=== PATIENT | female | born 1950 | race American Indian/Alaskan Native ===

== ENCOUNTER 2016-04-10 15:19 | Inpatient (IN) | payer SELFPAY ==
[2016-04-10] MEDS ORDERED: ZOFRAN IV ONE (16:30)
[2016-04-10] MEDS ORDERED: SUBLIMAZE IV ONE (16:30)
--- NOTE | 2016-04-10 16:37 | Emergency Department Report ---
HPI - General Chief Complaint: Chest Pain Time Seen by Provider: 04/10/16 16:20 - HPI HPI: Room 21 The patient is a 65-year-old female presenting with a chief complaint of chest pain and abdominal pain. Patient states her symptoms began 3 days ago with intermittent left-sided chest pain described as a tightness that radiates to the left upper extremity and back. The patient states she also has had pain in the epigastric region and felt as though she has been unable to pass flatus. Patient does admit to shortness of breath and nausea/vomiting with her chest pain. Patient denies diaphoresis. The patient states she's never had a stress test or cardiac catheterization Location: [see above] Duration: Intermittent 3 days Quality: Tightness Severity: 12/24 Modifying factors: [see above] Context: [see above] Mode of transportation: [not driving] ED Past Medical Hx - Past Medical History Additional medical history: States gastric ulcer on EGD several years ago. - Surgical History Past Surgical History?: No - Family History Family history: no significant - Social History Smoking Status: Never Smoker Substance Use Type: None - Medications Home Medications: Home Medications Medication Instructions Recorded Confirmed Last Taken Type No Known Home Medications [No 04/10/16 04/10/16 Unknown History Reported Home Medications] ED Review of Systems ROS: Stated complaint: CHEST PAIN/UNABLE TO PASS GAS Other details as noted in HPI Comment: All other systems reviewed and negative Constitutional: denies: chills, diaphoresis, fever Eyes: denies: eye pain, eye discharge, vision change ENT: denies: ear pain, throat pain Respiratory: shortness of breath Cardiovascular: chest pain Endocrine: no symptoms reported Gastrointestinal: nausea, vomiting Genitourinary: denies: urgency, dysuria, discharge Musculoskeletal: denies: back pain, joint swelling, arthralgia Skin: denies: rash, lesions Neurological: denies: headache, weakness, paresthesias Psychiatric: denies: anxiety, depression Hematological/Lymphatic: denies: easy bleeding, easy bruising Physical Exam - Physical Exam Vital Signs: Vital Signs 04/10/16 15:36 Temperature 98.1 F Pulse Rate 68 Respiratory 16 Rate Blood Pressure 126/86 O2 Sat by Pulse 99 Oximetry Physical Exam: GENERAL: The patient is well-developed well-nourished female lying on stretcher appearing to be in moderate discomfort. [] HEENT: Normocephalic. Atraumatic. Extraocular motions are intact. Patient has moist mucous membranes. NECK: Supple. Trachea midline CHEST/LUNGS: Clear to auscultation. There is no respiratory distress noted. HEART/CARDIOVASCULAR: Regular. There is no tachycardia. There is no gallop rub or murmur. ABDOMEN: Abdomen is soft, with diffuse tenderness to palpation. Patient has normal bowel sounds. There is no abdominal distention. SKIN: There is no rash. There is no edema. There is no diaphoresis. NEURO: The patient is awake, alert, and oriented. The patient is cooperative. The patient has normal speech MUSCULOSKELETAL: There is no evidence of acute injury. ED Course Vital Signs 04/10/16 15:36 Temperature 98.1 F Pulse Rate 68 Respiratory 16 Rate Blood Pressure 126/86 O2 Sat by Pulse 99 Oximetry - Consultations Consultation #1: 04/10/16 20:01 Gastroenterology paged ED Medical Decision Making - Lab Data Result diagrams: 04/10/16 16:46 04/10/16 16:46 Laboratory Tests 04/10/16 04/10/16 04/10/16 16:46 16:46 16:46 WBC 5.7 RBC 4.68 Hgb 12.7 Hct 39.6 MCV 85 MCH 27 L MCHC 32 RDW 16.1 H Plt Count 206 Lymph % (Auto) 31.6 [place] % (Auto) 12.2 H Eos % (Auto) 0.3 Baso % (Auto) 0.4 Lymph # 1.8 [place] # 0.7 Eos # 0.0 Baso # 0.0 Seg Neutrophils % 55.5 Seg Neutrophils # 3.2 Sodium 140 Potassium 2.7 L* Chloride 103.0 Carbon Dioxide 22 Anion Gap 18 BUN 11 Creatinine 0.6 L Estimated GFR > 60 BUN/Creatinine Ratio 18.33 Glucose 96 Calcium 8.9 Total Bilirubin 0.7 AST 11 ALT 7 Alkaline Phosphatase 95 Troponin T < 0.010 Total Protein 7.1 Albumin 3.7 L Albumin/Globulin Ratio 1.1 Amylase 48 Lipase 10 L 04/10/16 18:00 WBC RBC Hgb Hct MCV MCH MCHC RDW Plt Count Lymph % (Auto) [place] % (Auto) Eos % (Auto) Baso % (Auto) Lymph # [place] # Eos # Baso # Seg Neutrophils % Seg Neutrophils # Sodium Potassium Chloride Carbon Dioxide Anion Gap BUN Creatinine Estimated GFR BUN/Creatinine Ratio Glucose Calcium Total Bilirubin AST ALT Alkaline Phosphatase Troponin T < 0.010 Total Protein Albumin Albumin/Globulin Ratio Amylase Lipase - EKG Data -: EKG Interpreted by Me EKG shows normal: sinus rhythm Rate: normal - EKG Data When compared to previous EKG there are: changes noted Interpretation: nonspecific ST-T wave jose (T-wave inversions in leads 2, aVF, V2 , V3, V4, V5, V6) - Radiology Data Radiology results: report reviewed (CT chest), image reviewed (CT chest, CT abdomen and pelvis) CT chest (read by radiologist)-no evidence of pulmonary embolus. Borderline aneurysmal dilatation ascending thoracic aorta. No dissection or leakage visualized. Nonspecific bowel gas pattern partially visualized. No other abnormality seen CT abdomen and pelvis- abnormal appearance of the distal descending colon and proximal sigmoid colon wall thickening and inflammatory change in the Emmanuel mesentery. This could represent an inflammatory or infectious colitis. Malignancy cannot be excluded. I do not see evidence of complete obstruction however the remainder of the colon proximal to this area she'll distention by fluid and gas. This pattern suggests a stricture within the colon. Barium enema or colonoscopy may be helpful to evaluate this area further. Complex heterogeneous mass with peripheral linear and coarse calcifications are seen posterior to the uterus. - Differential Diagnosis ACS, aortic dissection, GERD, pericarditis, SBO, pancreatitis Critical care attestation.: If time is entered above; I have spent that time in minutes in the direct care of this critically ill patient, excluding procedure time. ED Disposition Clinical Impression: Chest pain, T wave inversion in EKG, Abdominal pain Disposition: OP ADMITTED IP TO THIS HOSP Is pt being admited?: Yes Does the pt Need Aspirin: No Condition: Stable Instructions: Chest Pain (ED) Referrals: PRIMARY CARE, [Primary Care Provider] - 3-5 Days Time of Disposition: 19:37 (hospitalist notified)
[2016-04-10 17:18] LABS: Basophils % (Auto) 0.4 % (0.0-1.8); Eosinophils % (Auto) 0.3 % (0.0-4.3); Hematocrit 39.6 % (30.3-42.9); Hemoglobin 12.7 gm/dl (10.1-14.3); Mean Corpuscular HGB Conc 32 % (30-34); Mean Corpuscular Hemoglobin 27 pg (28-32); Mean Corpuscular Volume 85 fl (79-97); Platelet Count 206 K/mm3 (140-440); Red Blood Count 4.68 M/mm3 (3.65-5.03); Red Cell Distribution Width 16.1 % (13.2-15.2); White Blood Count 5.7 K/mm3 (4.5-11.0)
[2016-04-10 17:33] LABS: Alanine Aminotransferase 7 units/L (7-56); Albumin 3.7 g/dL (3.9-5); Albumin/Globulin Ratio 1.1 %; Alkaline Phosphatase 95 units/L (35-129); Amylase 48 units/L (27-131); Anion Gap 18 mmol/L; BUN/Creatinine Ratio 18.33; Bilirubin,Total 0.7 mg/dL (0.1-1.2); Blood Urea Nitrogen 11 mg/dL (7-17); Calcium 8.9 mg/dL (8.4-10.2); Carbon Dioxide 22 mmol/L (22-30); Glucose 96 mg/dL (65-100); Lipase 10 units/L (13-60); Sodium 140 mmol/L (137-145); Total Protein 7.1 g/dL (6.3-8.2)
[2016-04-10 17:39] LABS: Potassium 2.7 mmol/L (3.6-5.0)
[2016-04-10] MEDS ORDERED: K-DUR PO ONE (17:41)
[2016-04-10] MEDS ORDERED: NACL ONE (18:38)
--- NOTE | 2016-04-10 19:28 | Cat Scan Report ---
FINAL REPORT PROCEDURE: CT ANGIO CHEST TECHNIQUE: Computerized tomographic angiography of the chest was performed during the IV injection of iodinated nonionic contrast including image processing. The image data was postprocessed using 2-dimensional multiplanar reformatted (MPR) and 3-dimensional (MIP and/or volume rendered) techniques. HISTORY: chest pain radiating to back COMPARISON: No prior studies are available for comparison. FINDINGS: Pulmonary outflow tract, right and left main pulmonary arteries and their proximal branches: Clear, no filling defects seen to suggest pulmonary embolus. Pericardium: No evidence of pericardial effusion. Thoracic aorta: There is mild dilatation of the ascending thoracic aorta measuring 3.9 x 4.0 centimeter, borderline aneurysmal dilatation. There is no dissection. Coronary arteries: Are unremarkable. Mediastinum and hilar regions: Nonspecific subcentimeter lymph nodes are visualized. No pathologically enlarged lymph nodes or masses are identified. Lung Ramesh: There is minimal dependent atelectasis. Lungs otherwise are clear. Upper abdomen: No acute or focal abnormality is seeen. There is nonspecific gas-filled colon partially visualized with an air-fluid level visualized left side of the colon.. Other: No acute bony abnormalities are identified. IMPRESSION: No evidence of pulmonary embolus. Borderline aneurysmal dilatation ascending thoracic aorta. No dissection or leakage visualized. Nonspecific bowel gas pattern partially visualized as described. No other abnormalities are seen.
--- NOTE | 2016-04-10 19:53 | Cat Scan Report ---
FINAL REPORT PROCEDURE: CT ABDOMEN PELVIS W CON TECHNIQUE: Computerized axial tomography of the abdomen and pelvis was performed after the IV injection of iodinated nonionic contrast. HISTORY: epigastric abdominal pain COMPARISON: Prior CT scan abdomen and pelvis 08/23/2014 FINDINGS: Lower Lung king: Minimal dependent atelectasis. Lung bases otherwise are unremarkable. Upper Abdomen: There are several small low-density nodules scattered in the liver which appear to represent small hepatic cysts. The liver is otherwise unremarkable. The gallbladder showed no abnormality. The adrenal glands, the pancreas and the spleen are unremarkable. Kidneys, Ureters and Urinary bladder: There appear to be small renal cortical cysts. The kidneys, the ureters and urinary bladder otherwise are unremarkable. Retroperitoneum: Atherosclerotic changes are seen in the abdominal aorta. No aneurysm is visualized. Nonspecific subcentimeter lymph nodes are seen in the retroperitoneum. Low-density lesion just inferior to the aortic bifurcation has enlarged now measuring 3.0 x 2.2 centimeters previously 2.3 x 2.0 centimeters. Bowel: There is abnormal wall thickening and inflammatory change surrounding distal descending colon extending into the sigmoid colon. There does appear to be diverticulosis in the vicinity. This could be related to diverticulitis. Malignancy in the left side of the colon cannot be excluded. The largest area of abnormal wall thickening visualized on 210 series 3. Fluid and air-fluid levels are seen in the colon proximal to this area of focal wall thickening. Reproductive organs: Complex heterogeneous density with peripheral linear and coarse calcifications are seen posterior to the uterus. This measures approximately 10.3 x 5.7 centimeters. Previously this measured approximately 9.2 x 5.9 centimeters. Other: Fundus of the uterus is mildly deviated to the right of midline. No abnormal adnexal mass seen on the right. The left ovary is difficult to separate from the large mass posterior to the uterus. IMPRESSION: Abnormal appearance of the distal descending colon proximal sigmoid colon with wall thickening and inflammatory change in the adjacent mesentery. This could represent an inflammatory or infectious colitis. Malignancy cannot be excluded. I do not see evidence of complete obstruction however the remainder the colon proximal to this area shows distention by fluid in gas. This pattern suggests a stricture within the colon.. Barium enema or colonoscopy may be helpful to evaluate this area further. Complex heterogeneous mass with peripheral linear and coarse calcifications are seen posterior to the uterus. I am unable to clearly separate the left ovary from this mass. Etiology is uncertain. This may have enlarged slightly since the prior study. This could represent a degenerating large sub serosal fibroid. Malignant alteration of a uterine fibroid or even slow-growing malignancy cannot be excluded. There is a low-density lesion at the aortic bifurcation as described which has enlarged slightly. I am uncertain if this represents a cystic abnormality or low-density solid lesion. Slow-growing metastasis cannot be excluded. Small hepatic cysts appear to be present. All renal cortical cysts also appear to be present.
[2016-04-10] MEDS ORDERED: AMBIEN PO PRN (20:49)
[2016-04-10] MEDS ORDERED: ZOFRAN IV PRN (20:49)
[2016-04-10] MEDS ORDERED: TYLENOL PO PRN (20:49)
[2016-04-10] MEDS ORDERED: MILK OF MAGNESIA PO PRN (20:49)
[2016-04-10] MEDS ORDERED: DULCOLAX PR PRN (20:49)
[2016-04-10] MEDS ORDERED: SODIUM CHLORIDE FLUSH SYRINGE 10 ML IV PRN (21:07)
[2016-04-10] MEDS: DILAUDID IV PRN (21:12)
[2016-04-10] MEDS ORDERED: PROTONIX 80 MG in NACL 0.9% 100 ML IV SCH (22:00)
--- NOTE | 2016-04-10 22:48 | History and Physical Report ---
CHIEF COMPLAINT: Abdominal pain and chest pain. HISTORY OF PRESENT ILLNESS: A 65-year-old female presents with symptoms of abdominal pain and left-sided chest pain since 3 days. The pain is more in the epigastric and left lower quadrant region. Also, the left-sided chest tightness present. The patient admits to shortness of breath and nausea, vomiting with the chest pain. Denies diaphoresis. Has increasing abdominal pain, more in the epigastric and the left lower quadrant region. No altered bowel movements. At this point, no fever, no chills. PAST MEDICAL HISTORY: Gastric ulcer years ago diagnosed by EGD. PAST SURGICAL HISTORY: None. FAMILY HISTORY: No significant family history. SOCIAL HISTORY: Does not smoke. No alcohol, no recreational drugs. CURRENT MEDICATIONS: None. REVIEW OF SYSTEMS: CONSTITUTIONAL: No weight loss, no fever, no chills. HEENT: No sore throat, no postnasal drip. CARDIOVASCULAR AND RESPIRATORY: Left-sided chest pain present. GASTROINTESTINAL: Epigastric pain and left lower quadrant pain. No altered bowel movements. No constipation. No diarrhea. GENITOURINARY: No dysuria, no flank pain. MUSCULOSKELETAL: No joint pains. No muscle pains. CENTRAL NERVOUS SYSTEM: No syncope, no seizures. No focal deficits. HEMATOLOGIC AND LYMPHATIC: No easy bleeding or bruising or lymphadenopathy. PSYCHIATRIC: Denies depression, homicidal ideation, etc. A 14-point review of systems done, otherwise negative. PHYSICAL EXAMINATION: VITAL SIGNS: Temperature 98.1, pulse is 68, respirations 16, blood pressure 126/86, O2 sats are 99. HEENT: Unremarkable. Pupils are equal and reactive. NECK: Supple. No lymphadenopathy. No thyromegaly. LUNGS: Clear to auscultation and percussion. Good air entry. CARDIOVASCULAR: S1, S2 heard. No gallop, no murmur, no rub. Apical impulse in left fifth intercostal space and midclavicular line. ABDOMEN: Soft and benign. No hepatosplenomegaly. No guarding. No rigidity. Hernial orifices are normal. Bowel sounds are present. EXTREMITIES: Good pedal pulses. No pedal edema. CENTRAL NERVOUS SYSTEM: Alert and oriented x 4, nonfocal exam. SKIN: Normal. LABORATORY DATA: Significant for white count of 5700, H and H is 12.7 and 39.6, platelet count is 206,000. Sodium is 140, potassium is 2.7, BUN and creatinine of 11 and 0.6. AST is 11, ALT is 7, alkaline phosphatase is 95. Total protein is 7.1. Albumin is slightly low. Lipase is 10. IMAGING STUDIES: CT of the abdomen was done, which shows abnormal wall thickening and inflammatory changes surrounding distal descending colon extending into the sigmoid colon. It does appear to be a diverticulosis in the vicinity. This could be related to diverticulitis. Complex heterogeneous density seen posterior to the uterus, this measures 10.3 x 5.7 cm. Previously, this was 9.25 x 9 cm. The final impression of the CAT scan was thickening and inflammatory changes in the distal descending colon, proximal sigmoid colon, and adjacent mesentery. This can represent inflammatory or infectious colitis. Malignancy could not be excluded. There is no evidence of complete obstruction; however, the remainder of the colon proximal to this area shows distention by fluid and gas. stricture within the colon. Barium enema or colonoscopy may be helpful. Also, complex heterogeneous mass with coarse calcification posterior to uterus. Possible ovarian versus degenerating subserosal fibroids present. Further surgeries were not suggested. ASSESSMENT AND PLAN: 1. Acute colitis. We will keep the patient on clear liquids, did not start on steroids. We will defer to GI for colonoscopy and then further definitive treatment. In the meantime, IV fluids and Dilaudid 0.5 q. 3 p.r.n. for pain. No steroids initiated. IV Flagyl 500 q. 8 initiated. Differential diagnosis of colon mass, colon stricture present, to be confirmed by colonoscopy. Dr. Crespo was consulted. 2. Hypokalemia, severe. To be supplemented aggressively. 3. Chest pain. We will get a Lexiscan on Friday, which is 48 hours from now. There is low probability for any ischemic heart disease versus coronary artery disease. Because of the chest pain presentation, we will do serial cardiac enzymes and Lexiscan after the colonoscopy. 4. Deep venous thrombosis prophylaxis, Lovenox 40 mg subcutaneous daily. JOB# [id number] MARGIE/JOYCE PETERSEN
[2016-04-10 23:33] LABS: Creatine Kinase MB 1.1 ng/mL (0.0-4.0)
[2016-04-10 23:34] LABS: Creatine Kinase 31 units/L (30-135)
[2016-04-11] MEDS: KCL 10MEQ/100ML 100 ML IV SCH ×4 (00:28→05:13)
[2016-04-11] MEDS ORDERED: NACL 0.9% 250ML 0 ML ONE (00:44)
[2016-04-11] MEDS: K-DUR PO SCH ×4 (02:16→12:45)
[2016-04-11 04:17] LABS: Creatine Kinase MB 1.2 ng/mL (0.0-4.0)
[2016-04-11 04:18] LABS: Alanine Aminotransferase 5 units/L (7-56); Albumin 3.5 g/dL (3.9-5); Albumin/Globulin Ratio 1.2 %; Alkaline Phosphatase 87 units/L (35-129); Anion Gap 20 mmol/L; Bilirubin,Total 0.5 mg/dL (0.1-1.2); Blood Urea Nitrogen 12 mg/dL (7-17); Calcium 8.6 mg/dL (8.4-10.2); Carbon Dioxide 20 mmol/L (22-30); Glucose 90 mg/dL (65-100); Potassium 4.1 mmol/L (3.6-5.0); Sodium 139 mmol/L (137-145); Total Protein 6.4 g/dL (6.3-8.2)
[2016-04-11 04:19] LABS: Creatine Kinase 31 units/L (30-135)
[2016-04-11 04:48] LABS: Basophils % (Auto) 0.4 % (0.0-1.8); Eosinophils % (Auto) 0.2 % (0.0-4.3); Hematocrit 38.5 % (30.3-42.9); Hemoglobin 12.3 gm/dl (10.1-14.3); Mean Corpuscular HGB Conc 32 % (30-34); Mean Corpuscular Hemoglobin 27 pg (28-32); Mean Corpuscular Volume 84 fl (79-97); Platelet Count 196 K/mm3 (140-440); Red Cell Distribution Width 16.1 % (13.2-15.2); White Blood Count 5.1 K/mm3 (4.5-11.0)
[2016-04-11] MEDS ORDERED: LEXISCAN IV ONE ×2 (08:49→08:52)
--- NOTE | 2016-04-11 09:27 | Admit Criteria Form ---
Admission Criteria Documentation: DIVERTICULITIS, ACUTE Clinical Indications for Admission to Inpatient Care (Place 'X' for any and all applicable criteria): Admission is indicated for ANY ONE of the following (1)(2)(3)(4): [ ]I. Peritoneal signs on physical examination (eg, acute abdominal pain, abdominal tenderness and guarding) [ ]II. Hemodynamic instability [ ]III. Persistent gross bleeding per rectum [ ]IV. Need for inpatient surgical intervention [ ]V. Significant abnormality on imaging study including ANY ONE of the following: [ ]a) Abscess [ ]b) Obstruction [ ]c) Fistula [ ]d) Ileus [ ]e) Free perforation [ ]. Immunocompromised patient (steroid use, chemotherapy, uremia, AIDS , transplant patient ) with acute symptoms [X]VII Inpatient admission required rather than observation care (also use Diverticulitis, Acute: Observation Care as appropriate) because of ANY ONE of the following: [ ]a) High fever or infection. requiring inpatient admission as indicated by ANY ONE of the following(5): [ ]1) Appropriate outpatient or observation care antimicrobial treatment unavailable, not effective, not feasible [ ]2) Temperature > 103.1 degrees F (39.5 degrees C) (oral) or < 96.8 degrees F (36 degrees C)(rectal) that does not respond to all emergency treatment measures [ ]3) Temperature> 104.9 degrees F (40.5 degrees C)( oral) [ ]4) Documented bacteremia [X]b) Severe pain requiring acute inpatient management [X]c) Severe electrolyte abnormalities requiring inpatient care [ ]d) Ongoing transfusion for blood loss (> 2 units) [ ]e) IV fluid to replace significant ongoing losses (> 3 L/m2 per day) [ ]f) Parenteral nutrition regimen that must be implemented on inpatient basis [ ]g) Other condition, treatment or monitoring requiring inpatient admission Extended stay beyond goal length of stay may be needed for (2) (15) : [ ]a) Unresolved symptoms (19) [ ]b) Complications [ ]c) Diverticular hemorrhage(2) The original [facility] [employer] content created by [facility] has been revised. The portions of the content which have been revised are identified through the use of italic text or in bold, and [facility] has neither reviewed nor approved the modified material. All other unmodified content is copyright [facility]. Please see references footnoted in the original [facility] edition 2016 Admission Criteria Met: Yes
[2016-04-11] MEDS ORDERED: PEPCID IV SCH (10:00)
[2016-04-11] MEDS ORDERED: PROTONIX 80 MG in NACL 0.9% 100 ML IV SCH (10:00)
--- NOTE | 2016-04-11 10:00 | Event Note ---
Date: 04/11/16 Patient off the floor at the time of rounds. She is receiving stress test. Will follow-up at later time.
[2016-04-11] MEDS: D5NS 1,000 ML IV SCH (10:11)
[2016-04-11] MEDS: FLAGYL 500 MG/100 ML 100 ML IV SCH ×3 (10:14→22:29)
[2016-04-11] MEDS: PROTONIX IV SCH ×2 (10:29→22:30)
[2016-04-11] MEDS: LOVENOX SUB-Q SCH (10:30)
[2016-04-11] MEDS: DILAUDID IV PRN (12:42)
--- NOTE | 2016-04-11 13:58 | Treadmill Report ---
NUCLEAR STRESS TEST REASON FOR STUDY: Chest pain. READING PHYSICIAN: Marcos Deng MD IMAGING PROTOCOL: The patient received 10 mCi of Technetium 99m Tetrofosmin for resting image and 28 mCi of Technetium 99m Tetrofosmin for stress imaging. The imaging for the whole procedure was completed 30-90 minutes following the initial injection of Technetium 99m tetrofosmin. The SPECT imaging in the 180 degree arc was performed in the right anterior oblique projection. Computerized reconstruction of the images was performed for analysis. IMAGING RESULTS: Normal cavity size from stress to rest. Normal distribution of radionuclide in the anterior, inferior, septal, and apical regions. Gated SPECT, EF of greater than 65% with no wall motion abnormalities. The patient infused Lexiscan with no EKG changes. SUMMARY: 1. Negative Lexiscan EKG. 2. Normal rest and stress myocardial perfusion scan. No significant stress ischemia. No wall motion abnormality. Gated SPECT, EF greater than 65%. JOB# [id number] ESTELA/JOYCE
--- NOTE | 2016-04-11 14:19 | Progress Note ---
Assessment and Plan Assessment and plan: Patient is a 47-year-old -[place] female who presented to the hospital with complaint of abdominal pain and left-sided chest pain for 3 days. History concerning for ileus stress tests performed today negative. CTA negative for pulmonary embolism but did note a mild aortic aneurysmal dilatation. Some concerns about possible mass in the left adnexal area, the uterus and also concerning for inflammatory or infectious colitis. * Acute colitis infectious versus inflammatory * Left adnexal mass * Atypical chest pain-likely secondary to reflux disease * Abdominal pain rule out colitis rule out ileus * Hypokalemia- Replace Plan: * Continue antibiotics * Discussed with cardiology stress test negative. * Continue pain control and PPI * potassium replaced. * Check Transvaginal US. R/O malignancy * Stool Softeners * DVT/GI prophylaxis History Interval history: Follow-up Chest pain and abdominal pain Patient seen and examined this morning in no acute distress Continues to report abdominal pain although states that chest pain is improved. Rates pain at Barker tendon intensity. States she's not been able to have flatus had bowel movements the day before admission. No fever noted blood pressure controlled No adverse events reported to me by nursing staff Hospitalist Physical - Physical exam Narrative exam: VITAL SIGNS: Reviewed. GENERAL: The patient appeared well nourished and normally developed. Vital signs as documented. HEAD: No signs of head trauma. EYES: Pupils are equal. Extraocular motions intact. EARS: Hearing grossly intact. MOUTH: Oropharynx is normal. NECK: No adenopathy, no JVD. CHEST: Chest with clear breath sounds bilaterally. No wheezes, rales, or rhonchi. CARDIAC: Regular rate and rhythm. S1 and S2, without murmurs, gallops, or rubs. VASCULAR: No Edema. Peripheral pulses normal and equal in all extremities. ABDOMEN: Soft, tenderness left lower quadrant, no sign of distention. No rebound or guarding, and no masses palpated. Bowel Sounds hypoactive. MUSCULOSKELETAL: Good range of motion of all major joints. Extremities without clubbing, cyanosis or edema. NEUROLOGIC EXAM: Alert and oriented x 3. No focal sensory or strength deficits. Speech normal. Follows commands. PSYCHIATRIC: Mood normal. SKIN: No rash or lesions. - Constitutional Vitals: Temp Pulse Resp BP Pulse Ox 97.8 F 89 20 131/77 97 04/11/16 07:40 04/11/16 09:07 04/11/16 12:42 04/11/16 09:07 04/11/16 10:17 Results - Labs CBC & Chem 7: 04/11/16 03:38 04/11/16 03:38 Labs: Laboratory Last Values WBC 5.1 K/mm3 (4.5-11.0) 04/11/16 03:38 RBC 4.60 M/mm3 (3.65-5.03) 04/11/16 03:38 Hgb 12.3 gm/dl (10.1-14.3) 04/11/16 03:38 Hct 38.5 % (30.3-42.9) 04/11/16 03:38 MCV 84 fl (79-97) 04/11/16 03:38 MCH 27 pg (28-32) L 04/11/16 03:38 MCHC 32 % (30-34) 04/11/16 03:38 RDW 16.1 % (13.2-15.2) H 04/11/16 03:38 Plt Count 196 K/mm3 (140-440) 04/11/16 03:38 Lymph % (Auto) 20.9 % (13.4-35.0) 04/11/16 03:38 [place] % (Auto) 8.4 % (0.0-7.3) H 04/11/16 03:38 Eos % (Auto) 0.2 % (0.0-4.3) 04/11/16 03:38 Baso % (Auto) 0.4 % (0.0-1.8) 04/11/16 03:38 Lymph # 1.1 K/mm3 (1.2-5.4) L 04/11/16 03:38 [place] # 0.4 K/mm3 (0.0-0.8) 04/11/16 03:38 Eos # 0.0 K/mm3 (0.0-0.4) 04/11/16 03:38 Baso # 0.0 K/mm3 (0.0-0.1) 04/11/16 03:38 Seg Neutrophils % 70.1 % (40.0-70.0) H 04/11/16 03:38 Seg Neutrophils # 3.6 K/mm3 (1.8-7.7) 04/11/16 03:38 Sodium 139 mmol/L (137-145) 04/11/16 03:38 Potassium 4.1 mmol/L (3.6-5.0) D 04/11/16 03:38 Chloride 103.0 mmol/L (98-107) 04/11/16 03:38 Carbon Dioxide 20 mmol/L (22-30) L 04/11/16 03:38 Anion Gap 20 mmol/L 04/11/16 03:38 BUN 12 mg/dL (7-17) 04/11/16 03:38 Creatinine 0.5 mg/dL (0.7-1.2) L 04/11/16 03:38 Estimated GFR > 60 ml/min 04/11/16 03:38 BUN/Creatinine Ratio 24.00 % 04/11/16 03:38 Glucose 90 mg/dL (65-100) 04/11/16 03:38 Calcium 8.6 mg/dL (8.4-10.2) 04/11/16 03:38 Total Bilirubin 0.5 mg/dL (0.1-1.2) 04/11/16 03:38 AST 9 units/L (5-40) 04/11/16 03:38 ALT 5 units/L (7-56) L 04/11/16 03:38 Alkaline Phosphatase 87 units/L (35-129) 04/11/16 03:38 Total Creatine Kinase 31 units/L (30-135) 04/11/16 03:38 CK-MB (CK-2) 1.2 ng/mL (0.0-4.0) 04/11/16 03:38 CK-MB (CK-2) Rel Index 3.8 (0-4) 04/11/16 03:38 Troponin T < 0.010 ng/mL (0.00-0.029) 04/11/16 03:38 Total Protein 6.4 g/dL (6.3-8.2) 04/11/16 03:38 Albumin 3.5 g/dL (3.9-5) L 04/11/16 03:38 Albumin/Globulin Ratio 1.2 % 04/11/16 03:38 Amylase 48 units/L (27-131) 04/10/16 16:46 Lipase 10 units/L (13-60) L 04/10/16 16:46 - Imaging and Cardiology EKG: image reviewed (normal sinus rhythm) CT scan - abdomen: image reviewed CT scan - chest: report reviewed (mild aneurysm dilatation), image reviewed (no acute pathology my personal review)
--- NOTE | 2016-04-11 22:10 | Gastroenterology Consultation ---
History of Present Illness - Reason for Consult Consult date: 04/11/16 abdominal pain, abnormal CT scan/colitis Requesting physician: LOBO MUKHERJEE - History of Present Illness Ms Mcguire is a 65 yo aaf who presents with left sided abd pain, left sided chest pain, and epigastric pain x 2-3 days. Patient reports being in her usual state of health prior to this. She reports episodes of nausea without emesis, and liquid stools w/o blood during this time. Reports having h/o diverticulitis, and a colonoscopy in the past few years. Denies overt GI bleeding, weight loss , fevers/chills. Past History Past Medical History: other (peptic ulcer disease) Past Surgical History: No surgical history Social history: no significant social history Family history: no significant family history Medications and Allergies Allergies Allergy/AdvReac Type Severity Reaction Status Date / Time No Known Allergies Allergy Verified 08/23/14 11:28 Home Medications Medication Instructions Recorded Confirmed Last Taken Type No Known Home Medications [No 04/10/16 04/10/16 Unknown History Reported Home Medications] Active Meds: Active Medications Acetaminophen (Tylenol) 650 mg PO Q4H PRN PRN Reason: Pain MILD(1-3)/Fever >100.5/RAMIREZ Bisacodyl (Dulcolax) 10 mg VT QDAY PRN PRN Reason: Constipation unrelieved by MOM Enoxaparin Sodium (Lovenox) 40 mg SUB-Q QDAY [facility] Last Admin: 04/11/16 10:30 Dose: 40 mg Hydromorphone HCl (Dilaudid) 1 mg IV Q3H PRN PRN Reason: Pain , Severe (7-10) Last Admin: 04/11/16 12:42 Dose: 1 mg Dextrose/Sodium Chloride (D5ns) 1,000 mls @ 75 mls/hr IV DIRECT [facility] Last Admin: 04/11/16 10:11 Dose: 75 mls/hr Metronidazole (Flagyl 500 Mg/100 Ml) 100 mls @ 100 mls/hr IV Q8HR [facility] Last Admin: 04/11/16 14:15 Dose: 100 mls/hr Magnesium Hydroxide (Milk Of Magnesia) 30 ml PO Q4H PRN PRN Reason: Constipation Ondansetron HCl (Zofran) 4 mg IV Q8H PRN PRN Reason: N/V unrelieved by Reglan Pantoprazole Sodium (Protonix) 40 mg IV BID DARRYN Stop: 04/11/16 23:59 Last Admin: 04/11/16 10:29 Dose: 40 mg Pantoprazole Sodium (Protonix) 40 mg PO BID [facility] Sodium Chloride (Sodium Chloride Flush Syringe 10 Ml) 10 ml IV PRN PRN PRN Reason: LINE FLUSH Zolpidem Tartrate (Ambien) 5 mg PO QHS PRN PRN Reason: Insomnia Review of Systems - Review of Systems All systems: negative Cardiovascular: chest pain, shortness of breath Gastrointestinal: abdominal pain, change in bowel habits Exam - Constitutional Vital Signs: Temp Pulse Resp BP Pulse Ox 98.0 F 68 18 121/75 97 04/11/16 15:05 04/11/16 15:05 04/11/16 15:05 04/11/16 15:05 04/11/16 10:17 General appearance: no acute distress - EENT Eyes: PERRL, EOM intact ENT: hearing intact, clear oral mucosa - Neck Neck: supple - Respiratory Respiratory effort: normal Respiratory: right: CTA - Cardiovascular Rhythm: regular Heart Sounds: Present: S1 & S2 Extremities: no ischemia, No edema - Gastrointestinal General gastrointestinal: Present: soft, tender (+ left sided and epigastric ttp , no rebound/guarding), non-distended, hypoactive bowel sounds - Integumentary Integumentary: Present: clear, warm, dry - Musculoskeletal Musculoskeletal: deferred - Neurologic Neurological: alert and oriented x3 - Psychiatric Psychiatric: appropriate mood/affect - Labs CBC & Chem 7: 04/11/16 03:38 04/11/16 03:38 Lab Results: Laboratory Results - last 24 hr 04/10/16 04/11/16 04/11/16 23:57 03:38 03:38 WBC 5.1 RBC 4.60 Hgb 12.3 Hct 38.5 MCV 84 MCH 27 L MCHC 32 RDW 16.1 H Plt Count 196 Lymph % (Auto) 20.9 [place] % (Auto) 8.4 H Eos % (Auto) 0.2 Baso % (Auto) 0.4 Lymph # 1.1 L Long # 0.4 Eos # 0.0 Baso # 0.0 Seg Neutrophils % 70.1 H Seg Neutrophils # 3.6 Sodium 139 Potassium 4.1 D Chloride 103.0 Carbon Dioxide 20 L Anion Gap 20 BUN 12 Creatinine 0.5 L Estimated GFR > 60 BUN/Creatinine Ratio 24.00 Glucose 90 Calcium 8.6 Total Bilirubin 0.5 AST 9 ALT 5 L Alkaline Phosphatase 87 Total Creatine Kinase CK-MB (CK-2) CK-MB (CK-2) Rel Index Troponin T < 0.010 Total Protein 6.4 Albumin 3.5 L Albumin/Globulin Ratio 1.2 04/11/16 03:38 WBC RBC Hgb Hct MCV MCH MCHC RDW Plt Count Lymph % (Auto) [place] % (Auto) Eos % (Auto) Baso % (Auto) Lymph # Long # Eos # Baso # Seg Neutrophils % Seg Neutrophils # Sodium Potassium Chloride Carbon Dioxide Anion Gap BUN Creatinine Estimated GFR BUN/Creatinine Ratio Glucose Calcium Total Bilirubin AST ALT Alkaline Phosphatase Total Creatine Kinase 31 CK-MB (CK-2) 1.2 CK-MB (CK-2) Rel Index 3.8 Troponin T < 0.010 Total Protein Albumin Albumin/Globulin Ratio - Imaging X-ray: report reviewed CT Scan: report reviewed Assessment and Plan 1. chest pain - stress test performed today, will f/u results 2. Left sided inflammation and stenosis in colon - unclear etiology, etiologies include diverticulitis, infectious etiology, colon cancer, vs ischemic colitis. Abd non-distended and soft. having liquid stools. recommend stool studies including c diff, empiric abx, check lactate level, and obtain KUB for interval changes/signs of obstruction. Will likely need flex sig/colonoscopy depending on clinical course and timing of last colonoscopy. If symptoms worsen/progress , recommend surgery consult.
[2016-04-12] MEDS: D5NS 1,000 ML IV SCH (06:15)
[2016-04-12] MEDS: FLAGYL 500 MG/100 ML 100 ML IV SCH ×2 (06:16→19:00)
--- NOTE | 2016-04-12 09:09 | XRay Report ---
KUB: History: Abdominal distention. Findings: Distended with air ascending, transverse colon and splenic flexure. Minimal air in small bowel. No radiopaque calculus. Impression: Probable obstruction of the distal descending colon.
[2016-04-12] MEDS ORDERED: PEPCID IV SCH (10:00)
--- NOTE | 2016-04-12 10:27 | Ultrasound Report ---
ULTRASOUND PELVIS COMPLETE - TRANSABDOMINAL AND TRANSVAGINAL: INDICATION: Possible left ovarian mass. COMPARISON: 04/10/2016 CT. FINDINGS: Transabdominal and transvaginal pelvic sonography performed in this postmenopausal patient again demonstrates an anteverted, heterogeneous, myomatous 8.5 x 3.4 x 5.3 cm uterus, many fibroids calcified, though difficult to accurately measure sonographically. Small amount of pelvic free fluid. Endometrial thickness towards the fundus is approximately 6 mm, endovaginal image 4. Minimal fluid along the endometrial canal may also be present. Right ovary is 1.8 x 1.2 x 0.7 cm. Left ovary not distinctly identified with a heterogeneous, partially calcified left hemipelvic/adnexal mass measuring approximately 5.7 x 4.9 x 7.6 cm that may well correlate with multiple predominantly left-sided calcified fibroids noted on CT. CONCLUSION: 1. Left ovary not separately identified in this patient with multiple fibroids, predominantly calcified on the left and their CT appearance not significantly changed dating back to February 2010. 2. Few other incidental findings, as above. Thank you for the opportunity to participate in this patient's care.
[2016-04-12] MEDS: DILAUDID IV PRN (10:42)
[2016-04-12] MEDS: LOVENOX SUB-Q SCH (10:44)
[2016-04-12] MEDS: PROTONIX PO SCH (10:44)
[2016-04-12] MEDS: K-DUR PO SCH (10:50)
--- NOTE | 2016-04-12 12:28 | Progress Note ---
Assessment and Plan Assessment and plan: Patient is a 47-year-old -Citizen [place] female who presented to the hospital with complaint of abdominal pain and left-sided chest pain for 3 days. History concerning for ileus stress tests performed today negative. CTA negative for pulmonary embolism but did note a mild aortic aneurysmal dilatation. Some concerns about possible mass in the left adnexal area, the uterus and also concerning for inflammatory or infectious colitis. * Acute colitis infectious versus inflammatory * Atypical chest pain-likely secondary to reflux disease * Abdominal pain rule out colitis rule out ileus * Hypokalemia- Replace Plan: * Continue antibiotics * We'll discuss with GI in respect to possible obstruction noted on ultrasound. * Stool for C. difficile eval * Discussed with cardiology stress test negative. * Continue pain control and PPI * potassium replaced. * Vaginal ultrasound with no evidence of ovarian mass. * Stool Softeners * Colonoscopy outpatient when clinically improved * DVT/GI prophylaxis * 1. chest pain - stress test performed today, will f/u results . * History Interval history: Follow-up Chest pain and abdominal pain Patient seen and examined this morning in no acute distress She reports improvement in chest pain reports that abdominal pain is improving but still present. She also reports that she is having loose bowel movements. Denies any fever. Blood pressure controlled No adverse events reported to me by nursing staff Hospitalist Physical - Physical exam Narrative exam: VITAL SIGNS: Reviewed. GENERAL: The patient appeared well nourished and normally developed. Vital signs as documented. HEAD: No signs of head trauma. EYES: Pupils are equal. Extraocular motions intact. EARS: Hearing grossly intact. MOUTH: Oropharynx is normal. NECK: No adenopathy, no JVD. CHEST: Chest with clear breath sounds bilaterally. No wheezes, rales, or rhonchi. CARDIAC: Regular rate and rhythm. S1 and S2, without murmurs, gallops, or rubs. VASCULAR: No Edema. Peripheral pulses normal and equal in all extremities. ABDOMEN: Soft, tenderness left lower quadrant, no sign of distention. No rebound or guarding, and no masses palpated. Bowel Sounds hypoactive. MUSCULOSKELETAL: Good range of motion of all major joints. Extremities without clubbing, cyanosis or edema. NEUROLOGIC EXAM: Alert and oriented x 3. No focal sensory or strength deficits. Speech normal. Follows commands. PSYCHIATRIC: Mood normal. SKIN: No rash or lesions. - Constitutional Vitals: Temp Pulse Resp BP Pulse Ox 98 F 52 L 20 112/66 98 04/12/16 12:00 04/12/16 12:00 04/12/16 12:00 04/12/16 12:00 04/12/16 12:00 Results - Labs CBC & Chem 7: 04/11/16 03:38 04/11/16 03:38 Labs: Laboratory Last Values WBC 5.1 K/mm3 (4.5-11.0) 04/11/16 03:38 RBC 4.60 M/mm3 (3.65-5.03) 04/11/16 03:38 Hgb 12.3 gm/dl (10.1-14.3) 04/11/16 03:38 Hct 38.5 % (30.3-42.9) 04/11/16 03:38 MCV 84 fl (79-97) 04/11/16 03:38 MCH 27 pg (28-32) L 04/11/16 03:38 MCHC 32 % (30-34) 04/11/16 03:38 RDW 16.1 % (13.2-15.2) H 04/11/16 03:38 Plt Count 196 K/mm3 (140-440) 04/11/16 03:38 Lymph % (Auto) 20.9 % (13.4-35.0) 04/11/16 03:38 [place] % (Auto) 8.4 % (0.0-7.3) H 04/11/16 03:38 Eos % (Auto) 0.2 % (0.0-4.3) 04/11/16 03:38 Baso % (Auto) 0.4 % (0.0-1.8) 04/11/16 03:38 Lymph # 1.1 K/mm3 (1.2-5.4) L 04/11/16 03:38 [place] # 0.4 K/mm3 (0.0-0.8) 04/11/16 03:38 Eos # 0.0 K/mm3 (0.0-0.4) 04/11/16 03:38 Baso # 0.0 K/mm3 (0.0-0.1) 04/11/16 03:38 Seg Neutrophils % 70.1 % (40.0-70.0) H 04/11/16 03:38 Seg Neutrophils # 3.6 K/mm3 (1.8-7.7) 04/11/16 03:38 Sodium 139 mmol/L (137-145) 04/11/16 03:38 Potassium 4.1 mmol/L (3.6-5.0) D 04/11/16 03:38 Chloride 103.0 mmol/L (98-107) 04/11/16 03:38 Carbon Dioxide 20 mmol/L (22-30) L 04/11/16 03:38 Anion Gap 20 mmol/L 04/11/16 03:38 BUN 12 mg/dL (7-17) 04/11/16 03:38 Creatinine 0.5 mg/dL (0.7-1.2) L 04/11/16 03:38 Estimated GFR > 60 ml/min 04/11/16 03:38 BUN/Creatinine Ratio 24.00 % 04/11/16 03:38 Glucose 90 mg/dL (65-100) 04/11/16 03:38 Calcium 8.6 mg/dL (8.4-10.2) 04/11/16 03:38 Total Bilirubin 0.5 mg/dL (0.1-1.2) 04/11/16 03:38 AST 9 units/L (5-40) 04/11/16 03:38 ALT 5 units/L (7-56) L 04/11/16 03:38 Alkaline Phosphatase 87 units/L (35-129) 04/11/16 03:38 Total Creatine Kinase 31 units/L (30-135) 04/11/16 03:38 CK-MB (CK-2) 1.2 ng/mL (0.0-4.0) 04/11/16 03:38 CK-MB (CK-2) Rel Index 3.8 (0-4) 04/11/16 03:38 Troponin T < 0.010 ng/mL (0.00-0.029) 04/11/16 03:38 Total Protein 6.4 g/dL (6.3-8.2) 04/11/16 03:38 Albumin 3.5 g/dL (3.9-5) L 04/11/16 03:38 Albumin/Globulin Ratio 1.2 % 04/11/16 03:38 Amylase 48 units/L (27-131) 04/10/16 16:46 Lipase 10 units/L (13-60) L 04/10/16 16:46 - Imaging and Cardiology Abdominal x-ray: image reviewed (shows obstruction)
[2016-04-13] MEDS: FLAGYL 500 MG/100 ML 100 ML IV SCH ×3 (00:35→19:28)
[2016-04-13] MEDS: PROTONIX PO SCH ×2 (00:35→12:03)
[2016-04-13] MEDS: DILAUDID IV PRN ×6 (01:13→23:46)
[2016-04-13] MEDS: D5NS 1,000 ML IV SCH ×2 (06:55→23:50)
--- NOTE | 2016-04-13 08:34 | Gastroenterology Progress Note ---
Assessment and Plan Abd pain/left sided colitis with possible obstruction - clinically having bm's and tolerating liquid diet. Will obtain KUB. etiology unclear (infectious, ischemic, diverticulitis, possible malignancy). Likely will need flex sig, although higher risk of complication if this is diverticulitis. Cont abx, consider surgery consult to follow. Subjective Date of service: 04/12/16 Principal diagnosis: abdominal pain, colitis Interval history: pt seen and examined on 04/12. She reports mild improvement in abd pain. She is having bm's, tolerating clear liquid diet without n/v. Objective - Constitutional Vitals: Temp Pulse Resp BP Pulse Ox 98.6 F 60 16 111/68 100 04/13/16 07:00 04/13/16 07:00 04/13/16 07:00 04/13/16 07:00 04/13/16 07:00 General appearance: no acute distress - Respiratory Respiratory effort: normal Respiratory: bilateral: CTA - Cardiovascular Rhythm: regular Heart Sounds: Present: S1 & S2 - Gastrointestinal General gastrointestinal: Present: soft (nd, + bs, + epigastric/left sided pain to palpation) - Neurologic Neurological: alert and oriented x3 - Labs CBC & Chem 7: 04/11/16 03:38 04/11/16 03:38
[2016-04-13] MEDS: LOVENOX SUB-Q SCH (12:02)
--- NOTE | 2016-04-13 12:21 | Progress Note ---
Assessment and Plan Assessment and plan: Patient is a 47-year-old -[place] female who presented to the hospital with complaint of abdominal pain and left-sided chest pain for 3 days. History concerning for ileus stress tests performed today negative. CTA negative for pulmonary embolism but did note a mild aortic aneurysmal dilatation. Some concerns about possible mass in the left adnexal area, the uterus and also concerning for inflammatory or infectious colitis. * Acute colitis infectious versus inflammatory * Atypical chest pain-likely secondary to reflux disease * Abdominal pain rule out colitis rule out ileus * Hypokalemia- Replace Plan: * Continue antibiotics-we'll change to by mouth due to infiltrated IV Convert back to IV once this was rectified * Stool for C. difficile no growth. * GI input appreciated will obtain surgical evaluation also. * Discussed with cardiology stress test negative. * Continue pain control and PPI * potassium replaced. * Vaginal ultrasound with no evidence of ovarian mass. * Stool Softeners * Colonoscopy outpatient when clinically improved * DVT/GI prophylaxis History Interval history: Follow-up Chest pain and abdominal pain Patient seen and examined this morning in no acute distress Chest pain at this time but still with abdominal pain She also reports that she is having loose bowel movements. Denies any fever. Blood pressure controlled No adverse events reported to me by nursing staff Hospitalist Physical - Physical exam Narrative exam: VITAL SIGNS: Reviewed. GENERAL: The patient appeared well nourished and normally developed. Vital signs as documented. HEAD: No signs of head trauma. EYES: Pupils are equal. Extraocular motions intact. EARS: Hearing grossly intact. MOUTH: Oropharynx is normal. NECK: No adenopathy, no JVD. CHEST: Chest with clear breath sounds bilaterally. No wheezes, rales, or rhonchi. CARDIAC: Regular rate and rhythm. S1 and S2, without murmurs, gallops, or rubs. VASCULAR: No Edema. Peripheral pulses normal and equal in all extremities. ABDOMEN: Soft, tenderness left lower quadrant, no sign of distention. No rebound or guarding, and no masses palpated. Bowel Sounds hypoactive. MUSCULOSKELETAL: Good range of motion of all major joints. Extremities without clubbing, cyanosis or edema. NEUROLOGIC EXAM: Alert and oriented x 3. No focal sensory or strength deficits. Speech normal. Follows commands. PSYCHIATRIC: Mood normal. SKIN: No rash or lesions. - Constitutional Vitals: Temp Pulse Resp BP Pulse Ox 98.6 F 60 16 111/68 100 04/13/16 07:00 04/13/16 07:00 04/13/16 07:00 04/13/16 07:00 04/13/16 07:00 Results - Labs CBC & Chem 7: 04/11/16 03:38 04/11/16 03:38 Labs: Laboratory Last Values WBC 5.1 K/mm3 (4.5-11.0) 04/11/16 03:38 RBC 4.60 M/mm3 (3.65-5.03) 04/11/16 03:38 Hgb 12.3 gm/dl (10.1-14.3) 04/11/16 03:38 Hct 38.5 % (30.3-42.9) 04/11/16 03:38 MCV 84 fl (79-97) 04/11/16 03:38 MCH 27 pg (28-32) L 04/11/16 03:38 MCHC 32 % (30-34) 04/11/16 03:38 RDW 16.1 % (13.2-15.2) H 04/11/16 03:38 Plt Count 196 K/mm3 (140-440) 04/11/16 03:38 Lymph % (Auto) 20.9 % (13.4-35.0) 04/11/16 03:38 [place] % (Auto) 8.4 % (0.0-7.3) H 04/11/16 03:38 Eos % (Auto) 0.2 % (0.0-4.3) 04/11/16 03:38 Baso % (Auto) 0.4 % (0.0-1.8) 04/11/16 03:38 Lymph # 1.1 K/mm3 (1.2-5.4) L 04/11/16 03:38 [place] # 0.4 K/mm3 (0.0-0.8) 04/11/16 03:38 Eos # 0.0 K/mm3 (0.0-0.4) 04/11/16 03:38 Baso # 0.0 K/mm3 (0.0-0.1) 04/11/16 03:38 Seg Neutrophils % 70.1 % (40.0-70.0) H 04/11/16 03:38 Seg Neutrophils # 3.6 K/mm3 (1.8-7.7) 04/11/16 03:38 Sodium 139 mmol/L (137-145) 04/11/16 03:38 Potassium 4.1 mmol/L (3.6-5.0) D 04/11/16 03:38 Chloride 103.0 mmol/L (98-107) 04/11/16 03:38 Carbon Dioxide 20 mmol/L (22-30) L 04/11/16 03:38 Anion Gap 20 mmol/L 04/11/16 03:38 BUN 12 mg/dL (7-17) 04/11/16 03:38 Creatinine 0.5 mg/dL (0.7-1.2) L 04/11/16 03:38 Estimated GFR > 60 ml/min 04/11/16 03:38 BUN/Creatinine Ratio 24.00 % 04/11/16 03:38 Glucose 90 mg/dL (65-100) 04/11/16 03:38 Calcium 8.6 mg/dL (8.4-10.2) 04/11/16 03:38 Total Bilirubin 0.5 mg/dL (0.1-1.2) 04/11/16 03:38 AST 9 units/L (5-40) 04/11/16 03:38 ALT 5 units/L (7-56) L 04/11/16 03:38 Alkaline Phosphatase 87 units/L (35-129) 04/11/16 03:38 Total Creatine Kinase 31 units/L (30-135) 04/11/16 03:38 CK-MB (CK-2) 1.2 ng/mL (0.0-4.0) 04/11/16 03:38 CK-MB (CK-2) Rel Index 3.8 (0-4) 04/11/16 03:38 Troponin T < 0.010 ng/mL (0.00-0.029) 04/11/16 03:38 Total Protein 6.4 g/dL (6.3-8.2) 04/11/16 03:38 Albumin 3.5 g/dL (3.9-5) L 04/11/16 03:38 Albumin/Globulin Ratio 1.2 % 04/11/16 03:38 Amylase 48 units/L (27-131) 04/10/16 16:46 Lipase 10 units/L (13-60) L 04/10/16 16:46 - Imaging and Cardiology Abdominal x-ray: image reviewed (concerning for obstruction)
[2016-04-13] MEDS ORDERED: FLAGYL PO SCH (14:00)
--- NOTE | 2016-04-13 14:16 | Consultation ---
History of Present Illness Consult date: 04/13/16 Reason for consult: other (Large bowel obstruction.) Chief complaint: Abdominal pain and distention - History of present illness History of present illness: 65 year old female admitted to the hospital with some abdominal pain and distention. Patient had a CAT scan which showed possible obstruction. KUB was done yesterday which showed distended colon from cecum to the day splenic flexure. Consulted for evaluation. On reviewing the CAT scan with Dr. Solis from radiology, saw the patient had a lesion in the sigmoid colon causing the obstruction. Past History Past Medical History: other (peptic ulcer disease) Past Surgical History: No surgical history Social history: no significant social history Family history: no significant family history Medications and Allergies Allergies Allergy/AdvReac Type Severity Reaction Status Date / Time No Known Allergies Allergy Verified 08/23/14 11:28 Home Medications Medication Instructions Recorded Confirmed Last Taken Type No Known Home Medications [No 04/10/16 04/10/16 Unknown History Reported Home Medications] Active Meds: Active Medications Acetaminophen (Tylenol) 650 mg PO Q4H PRN PRN Reason: Pain MILD(1-3)/Fever >100.5/RAMIREZ Bisacodyl (Dulcolax) 10 mg AR QDAY PRN PRN Reason: Constipation unrelieved by MOM Enoxaparin Sodium (Lovenox) 40 mg SUB-Q QDAY COUNT INCLUDES THE [facility] Last Admin: 04/13/16 12:02 Dose: 40 mg Hydromorphone HCl (Dilaudid) 1 mg IV Q3H PRN PRN Reason: Pain , Severe (7-10) Last Admin: 04/13/16 12:01 Dose: 1 mg Dextrose/Sodium Chloride (D5ns) 1,000 mls @ 75 mls/hr IV DIRECT COUNT INCLUDES THE [facility] Last Admin: 04/13/16 06:55 Dose: 75 mls/hr Levofloxacin (Levaquin) 500 mg PO Q24HR COUNT INCLUDES THE [facility] Magnesium Hydroxide (Milk Of Magnesia) 30 ml PO Q4H PRN PRN Reason: Constipation Metronidazole (Flagyl) 500 mg PO Q8HR COUNT INCLUDES THE [facility] Ondansetron HCl (Zofran) 4 mg IV Q8H PRN PRN Reason: N/V unrelieved by Reglan Pantoprazole Sodium (Protonix) 40 mg PO BID COUNT INCLUDES THE [facility] Last Admin: 04/13/16 12:03 Dose: 40 mg Sodium Chloride (Sodium Chloride Flush Syringe 10 Ml) 10 ml IV PRN PRN PRN Reason: LINE FLUSH Zolpidem Tartrate (Ambien) 5 mg PO QHS PRN PRN Reason: Insomnia Review of Systems All systems: negative (present complaint.) Exam Vital Signs Temp Pulse Resp BP Pulse Ox 98.1 F 68 16 126/86 99 04/10/16 15:36 04/10/16 15:36 04/10/16 15:36 04/10/16 15:36 04/10/16 15:36 - General physical appearance Positive: well developed, well nourished, no distress - Eyes Positive: PERRL, normal occular movement - ENT Positive: normal mucosa, no congestion - Respiratory Positive: normal expansion, normal respiratory effort, clear to auscultation - Cardiovascular Rhythm: regular Heart Sounds: Present: S1 & S2 - Extremities Extremities: no ischemia, No edema - Breasts Breasts: deferred - Abdomen Abdomen: Present: soft, bowel sounds normal, distended. Absent: tender Hernia: none - Genitourinary Female Genitourinary: deferred - Integumentary no rash, no growths, no abnormal pigmentation - Neurologic Neurologic: alert and oriented to time, place and person, motor strength and sensation are grossly intact - Musculoskeletal normal gait, normal posture - Psychiatric Psychiatric: appropriate mood/affect, intact judgment & insight Results - Labs 04/11/16 03:38 04/11/16 03:38 - Imaging Abdominal x-ray: report reviewed, image reviewed CT scan - abdomen: report reviewed, image reviewed (With Dr. Solis.) Assessment and Plan Impression: Large bowel obstruction with lesion on the sigmoid colon. Plans: For exploratory laparotomy today with possible sigmoid colectomy and end colostomy. Patient was explained the need for the procedure risk and complication as requested us to perform the procedure.
[2016-04-13] MEDS ORDERED: DIPRIVAN 10 MG/ML IV ONE (14:37)
[2016-04-13] MEDS ORDERED: DILAUDID ONE (14:37)
[2016-04-13] MEDS ORDERED: ZEMURON IV ONE (14:38)
[2016-04-13] MEDS ORDERED: XYLOCAINE MPF 2% ONE (14:38)
[2016-04-13] MEDS ORDERED: NACL 0.9% 1000 ML 1,000 ML ONE ×2 (15:27→17:14)
--- NOTE | 2016-04-13 15:31 | Anesthesia Consultation ---
Anesthesia Consult and Med Hx Date of service: 04/13/16 - Airway Anesthetic Teeth Evaluation: Dentures, Partials ROM Head & Neck: Adequate Mental/Hyoid Distance: Adequate Mallampati Class: Class II Intubation Access Assessment: Good - Pulmonary Exam CTA: Yes - Cardiac Exam Cardiac Exam: RRR - Pre-Operative Health Status ASA Pre-Surgery Classification: ASA3, Emergency Proposed Anesthetic Plan: General - Pulmonary Hx Asthma: No COPD: No Hx Pneumonia: No - Cardiovascular System Hx Coronary Artery Disease: (inverted T waves in anterolateral leads, lexiscan was neg for ischemia.) Hx Peripheral Vascular Disease: (4 cm ascending thoracic aneurysm) - Gastrointestinal Hx Ulcer: Yes - Endocrine Hx End Stage Renal Disease: No - Other Systems Hx Cancer: No - Additional Comments Anesthesia Medical History Comments: ? H/O diverticulitis, Left adnexal mass
--- NOTE | 2016-04-13 15:32 | Anesthesia Day of Surgery ---
Anesthesia Day of Surgery - Day of Surgery Patient Examined: Yes Patient H&P Reviewed: Yes Patient is NPO: Yes (few sips of water at 11:00)
[2016-04-13] MEDS ORDERED: DILAUDID IV PRN (15:33)
[2016-04-13] MEDS ORDERED: ZOFRAN ONE (15:53)
[2016-04-13] MEDS ORDERED: DECADRON ONE (15:53)
[2016-04-13] MEDS ORDERED: ANCEF ONE ×2 (17:25→17:26)
--- NOTE | 2016-04-13 18:47 | Operative Report ---
Operative Report Operative Report: Date of operation: 04/13/2016 Preoperative diagnosis: Large bowel obstruction. Postoperative diagnosis: Large bowel obstruction. Operation: 1. Distal descending and proximal sigmoid colectomy with end colostomy. #2. Splenic flexure takedown. Surgeon: Eliud Cintron M.D. Findings: 65 year old female admitted with obstipation and abdominal pain. CT scan of the abdomen showed a obstructing lesion in the distal descending and proximal sigmoid colon. At operation we found thickening of the distal descending and proximal sigmoid colon causing obstruction of the bowel. Procedure: Under general anesthesia the patient had a [address] The abdomen was prepped and draped in the usual sterile manner. A midline incision was performed with a #10 blade from above the umbilicus to above the symphysis pubis. The section carried down to the fascia which was divided in the midline using the electrocautery. Abdominal cavity was entered after dividing the peritoneum. There was marked distention of the large bowel from the cecum all the way to the mid descending colon. After he was done.And palpated the lesion in the distal descending and proximal sigmoid. We started dissection by dividing the white line of [place] at the level of the sigmoid colon. This dissection continued proximally along the descending colon gutter. The left ureter was identified at the level of the pelvic rim and was kept out of harm's way. A window was opened in the mesentery of the sigmoid. This was done at the level of the promontory. A PERICO was passed around the distal sigmoid and it was divided. It was done we continued dissection of the mesosigmoid all the way up to the descending colon using the LigaSure. The splenic flexure has to be taken down to gain length to bring out the colostomy. After the specimen was removed from the operative field the abdominal cavity was inspected for bleeders and none were found at this time. So a round incision was made in the skin in the left lower quadrant long term between the umbilicus and the left anterior superior iliac spine. Dissection carried down to the rectus fascia and an incision was made in the setting a gross fashion. The rectus muscle was split and we opened a window in the pericardium. This incision was made big enough to admit 3 fingers. Through this incision the colostomy was brought out. It was fixed to the peritoneum with 4 interrupted stitches of 3-0 Vicryl. Then preparations were made for closure. The abdominal cavity was closed with a single layer of multiple interrupted stitches of #1 Vicryl. The wound was irrigated with copious amount of normal saline solution. Skin edges were approximated with skin david leaving about 5 different wide spaces that were packed with Telfa wiks soaked in Betadine solution. After this was done the wound was covered with a towel. Then the bowel for the colostomy was fixed to the anterior fascia with multiple interrupted stitches of 3-0 Vicryls. Then the staple line on the bowel was dissected away with electrocautery and the colostomy was matured using multiple interrupted stitches of 3-0 chromic. Colostomy bag was put in place. The wound was dressed with sterile dressings. The patient was then awakened, extubated and transferred to the recovery room in good condition. Intravenous fluid replacement: Crystalloids. Estimated blood loss: 200 mL. Condition: Stable. Specimen: Distal descending and proximal sigmoid colon. Complications: None.
[2016-04-13] MEDS: ANCEF/NS 1 GM/50 ML 50 ML IV SCH (19:14)
--- NOTE | 2016-04-13 19:18 | Post Anesthesia Evaluation ---
- Post Anesthesia Evaluation Patient Participated: Yes Airway Patent: Yes Stable Respiratory Function: Yes Temp > 96.8F: Yes Pain Manageable: Yes Adequeate Hydration: Yes Anesthesia Complications: No Block Receding Appropriately: Not Applicable
[2016-04-14] MEDS ORDERED: ANCEF/NS 1 GM/50 ML 50 ML IV SCH (01:00)
[2016-04-14] MEDS: DILAUDID IV PRN ×7 (02:40→22:38)
[2016-04-14] MEDS: ANCEF/NS 1 GM/50 ML 50 ML IV SCH (03:45)
[2016-04-14] MEDS: FLAGYL 500 MG/100 ML 100 ML IV SCH (04:15)
[2016-04-14 05:49] LABS: Basophils % (Auto) 0.1 % (0.0-1.8); Hematocrit 35.8 % (30.3-42.9); Hemoglobin 11.7 gm/dl (10.1-14.3); Mean Corpuscular HGB Conc 33 % (30-34); Mean Corpuscular Hemoglobin 28 pg (28-32); Mean Corpuscular Volume 85 fl (79-97); Platelet Count 200 K/mm3 (140-440); Red Blood Count 4.23 M/mm3 (3.65-5.03); Red Cell Distribution Width 15.9 % (13.2-15.2); White Blood Count 10.7 K/mm3 (4.5-11.0)
[2016-04-14 05:56] LABS: Blood Urea Nitrogen 6 mg/dL (7-17); Carbon Dioxide 24 mmol/L (22-30); Glucose 137 mg/dL (65-100)
[2016-04-14 05:57] LABS: Chloride 106.6 mmol/L (98-107); Potassium 3.5 mmol/L (3.6-5.0); Sodium 142 mmol/L (137-145)
[2016-04-14 06:00] LABS: Anion Gap 15 mmol/L
[2016-04-14] MEDS: PROTONIX IV SCH (09:30)
[2016-04-14] MEDS: LOVENOX SUB-Q SCH (09:31)
[2016-04-14] MEDS: KCL 10MEQ/100ML 100 ML IV SCH ×4 (09:31→13:00)
[2016-04-14] MEDS ORDERED: LEVAQUIN PO SCH (10:00)
--- NOTE | 2016-04-14 10:17 | Progress Note ---
Assessment and Plan IMP: Stable 1st post op day. PLAN: Ice chips. Labs in am. Subjective Date of service: 04/14/16 Patient Reports: Positive: no new complaints Objective Vital Signs - 12hr 04/14/16 04/14/16 04/14/16 00:00 00:38 02:40 Temperature 97.8 F Pulse Rate [ Apical] Pulse Rate [ 80 Left Radial] Respiratory 18 20 18 Rate Blood Pressure 132/76 [Left Arm] O2 Sat by Pulse 99 Oximetry 04/14/16 04/14/16 04/14/16 04:00 06:21 08:00 Temperature 98.3 F 98.4 F Pulse Rate [ 72 Apical] Pulse Rate [ 81 Left Radial] Respiratory 18 20 18 Rate Blood Pressure 102/58 101/58 [Left Arm] O2 Sat by Pulse 98 98 Oximetry - Abdomen soft, tender (op site), bowel sounds hypoactive, wound (dressings dry and clear) - Psychiatric oriented to time, oriented to person, oriented to place, speech is normal, memory intact - Labs 04/14/16 05:20 04/14/16 05:20 Diabetes panel 04/14/16 Range/Units 05:20 Sodium 142 (137-145) mmol/L Potassium 3.5 L (3.6-5.0) mmol/L Chloride 106.6 (98-107) mmol/L Carbon Dioxide 24 (22-30) mmol/L BUN 6 L (7-17) mg/dL Creatinine 0.6 L (0.7-1.2) mg/dL Glucose 137 H (65-100) mg/dL Calcium 8.0 L (8.4-10.2) mg/dL Calcium panel 04/14/16 Range/Units 05:20 Calcium 8.0 L (8.4-10.2) mg/dL Pituitary panel 04/14/16 Range/Units 05:20 Sodium 142 (137-145) mmol/L Potassium 3.5 L (3.6-5.0) mmol/L Chloride 106.6 (98-107) mmol/L Carbon Dioxide 24 (22-30) mmol/L BUN 6 L (7-17) mg/dL Creatinine 0.6 L (0.7-1.2) mg/dL Glucose 137 H (65-100) mg/dL Calcium 8.0 L (8.4-10.2) mg/dL Adrenal panel 04/14/16 Range/Units 05:20 Sodium 142 (137-145) mmol/L Potassium 3.5 L (3.6-5.0) mmol/L Chloride 106.6 (98-107) mmol/L Carbon Dioxide 24 (22-30) mmol/L BUN 6 L (7-17) mg/dL Creatinine 0.6 L (0.7-1.2) mg/dL Glucose 137 H (65-100) mg/dL Calcium 8.0 L (8.4-10.2) mg/dL
--- NOTE | 2016-04-14 12:51 | Progress Note ---
Assessment and Plan Assessment and plan: Patient is a 47-year-old -[place] female who presented to the hospital with complaint of abdominal pain and left-sided chest pain for 3 days. History concerning for ileus stress tests performed today negative. CTA negative for pulmonary embolism but did note a mild aortic aneurysmal dilatation. Some concerns about possible mass in the left adnexal area, the uterus and also concerning for inflammatory or infectious colitis. * Acute colitis infectious versus inflammatory with associated large bowel obstruction * Large bowel obstruction with lesion on the sigmoid colon. * Atypical chest pain-likely secondary to reflux disease * Abdominal pain rule out colitis rule out ileus * Hypokalemia- Replace * Hypotension Plan: * She is status post exploratory laparotomy sigmoid colectomy and end colostomy. I've discussed with the surgeon today doubts that this was malignancy feels there may have been chronic diverticulitis. Nevertheless we' ll await pathology. * Ice chips okay * We'll increase IV fluids. * Stool for C. difficile no growth. * GI input appreciated will obtain surgical evaluation also. * Discussed with cardiology stress test negative. * Continue pain control and PPI * potassium replaced. * Vaginal ultrasound with no evidence of ovarian mass. * Stool Softeners * Colonoscopy outpatient when clinically improved * DVT/GI prophylaxis History Interval history: Follow-up Chest pain and abdominal pain post op day #1 Patient seen and examined this morning in no acute distress surgical site pain.. Denies any fever. Blood pressure controlled No adverse events reported to me by nursing staff Hospitalist Physical - Physical exam Narrative exam: VITAL SIGNS: Reviewed. GENERAL: The patient appeared well nourished and normally developed. Vital signs as documented. HEAD: No signs of head trauma. EYES: Pupils are equal. Extraocular motions intact. EARS: Hearing grossly intact. MOUTH: Oropharynx is normal. NECK: No adenopathy, no JVD. CHEST: Chest with clear breath sounds bilaterally. No wheezes, rales, or rhonchi. CARDIAC: Regular rate and rhythm. S1 and S2, without murmurs, gallops, or rubs. VASCULAR: No Edema. Peripheral pulses normal and equal in all extremities. ABDOMEN: Soft, no distention, colostomy in place, nontender, tissues viable.. No rebound or guarding, and no masses palpated. Bowel Sounds hypoactive. MUSCULOSKELETAL: Good range of motion of all major joints. Extremities without clubbing, cyanosis or edema. NEUROLOGIC EXAM: Alert and oriented x 3. No focal sensory or strength deficits. Speech normal. Follows commands. PSYCHIATRIC: Mood normal. SKIN: No rash or lesions. - Constitutional Vitals: Temp Pulse Resp BP Pulse Ox 98.5 F 74 18 105/60 98 04/14/16 12:00 04/14/16 12:00 04/14/16 12:00 04/14/16 12:00 04/14/16 08:00 Results - Labs CBC & Chem 7: 04/14/16 05:20 04/14/16 05:20 Labs: Laboratory Last Values WBC 10.7 K/mm3 (4.5-11.0) 04/14/16 05:20 RBC 4.23 M/mm3 (3.65-5.03) 04/14/16 05:20 Hgb 11.7 gm/dl (10.1-14.3) 04/14/16 05:20 Hct 35.8 % (30.3-42.9) 04/14/16 05:20 MCV 85 fl (79-97) 04/14/16 05:20 MCH 28 pg (28-32) 04/14/16 05:20 MCHC 33 % (30-34) 04/14/16 05:20 RDW 15.9 % (13.2-15.2) H 04/14/16 05:20 Plt Count 200 K/mm3 (140-440) 04/14/16 05:20 Lymph % (Auto) 5.7 % (13.4-35.0) L 04/14/16 05:20 [place] % (Auto) 10.0 % (0.0-7.3) H 04/14/16 05:20 Eos % (Auto) 0.0 % (0.0-4.3) 04/14/16 05:20 Baso % (Auto) 0.1 % (0.0-1.8) 04/14/16 05:20 Lymph # 0.6 K/mm3 (1.2-5.4) L 04/14/16 05:20 [place] # 1.1 K/mm3 (0.0-0.8) H 04/14/16 05:20 Eos # 0.0 K/mm3 (0.0-0.4) 04/14/16 05:20 Baso # 0.0 K/mm3 (0.0-0.1) 04/14/16 05:20 Seg Neutrophils % 84.2 % (40.0-70.0) H 04/14/16 05:20 Seg Neutrophils # 9.0 K/mm3 (1.8-7.7) H 04/14/16 05:20 Sodium 142 mmol/L (137-145) 04/14/16 05:20 Potassium 3.5 mmol/L (3.6-5.0) L 04/14/16 05:20 Chloride 106.6 mmol/L (98-107) 04/14/16 05:20 Carbon Dioxide 24 mmol/L (22-30) 04/14/16 05:20 Anion Gap 15 mmol/L 04/14/16 05:20 BUN 6 mg/dL (7-17) L 04/14/16 05:20 Creatinine 0.6 mg/dL (0.7-1.2) L 04/14/16 05:20 Estimated GFR > 60 ml/min 04/14/16 05:20 BUN/Creatinine Ratio 10.00 % 04/14/16 05:20 Glucose 137 mg/dL (65-100) H 04/14/16 05:20 Calcium 8.0 mg/dL (8.4-10.2) L 04/14/16 05:20 Total Bilirubin 0.5 mg/dL (0.1-1.2) 04/11/16 03:38 AST 9 units/L (5-40) 04/11/16 03:38 ALT 5 units/L (7-56) L 04/11/16 03:38 Alkaline Phosphatase 87 units/L (35-129) 04/11/16 03:38 Total Creatine Kinase 31 units/L (30-135) 04/11/16 03:38 CK-MB (CK-2) 1.2 ng/mL (0.0-4.0) 04/11/16 03:38 CK-MB (CK-2) Rel Index 3.8 (0-4) 04/11/16 03:38 Troponin T < 0.010 ng/mL (0.00-0.029) 04/11/16 03:38 Total Protein 6.4 g/dL (6.3-8.2) 04/11/16 03:38 Albumin 3.5 g/dL (3.9-5) L 04/11/16 03:38 Albumin/Globulin Ratio 1.2 % 04/11/16 03:38 Amylase 48 units/L (27-131) 04/10/16 16:46 Lipase 10 units/L (13-60) L 04/10/16 16:46
[2016-04-14] MEDS: D5NS 1,000 ML IV SCH ×2 (15:00→23:29)
[2016-04-15] MEDS: DILAUDID IV PRN ×7 (01:24→21:09)
[2016-04-15 05:07] LABS: Blood Urea Nitrogen 6 mg/dL (7-17); Carbon Dioxide 26 mmol/L (22-30); Chloride 108.5 mmol/L (98-107); Glucose 126 mg/dL (65-100); Potassium 3.5 mmol/L (3.6-5.0); Sodium 143 mmol/L (137-145)
[2016-04-15 05:10] LABS: Anion Gap 12 mmol/L
[2016-04-15 05:13] LABS: Basophils % (Auto) 0.1 % (0.0-1.8); Eosinophils % (Auto) 0.4 % (0.0-4.3); Hematocrit 32.8 % (30.3-42.9); Hemoglobin 10.6 gm/dl (10.1-14.3); Mean Corpuscular HGB Conc 33 % (30-34); Mean Corpuscular Hemoglobin 27 pg (28-32); Mean Corpuscular Volume 84 fl (79-97); Platelet Count 164 K/mm3 (140-440); Red Blood Count 3.92 M/mm3 (3.65-5.03); Red Cell Distribution Width 15.9 % (13.2-15.2); White Blood Count 5.9 K/mm3 (4.5-11.0)
[2016-04-15] MEDS: LOVENOX SUB-Q SCH ×2 (08:02→10:22)
[2016-04-15] MEDS: PROTONIX IV SCH ×2 (08:03→10:23)
[2016-04-15] MEDS: D5NS 1,000 ML IV SCH ×2 (08:11→16:40)
--- NOTE | 2016-04-15 09:48 | Progress Note ---
Assessment and Plan IMP: Stable 2nd post op day. Post op ileus. PLAN: D/C [place]. Continue NPO. Subjective Date of service: 04/15/16 Patient Reports: Positive: no new complaints, still having pain (incisional), no flatus, no bowel movement. Negative: nausea, vomiting Objective Vital Signs - 12hr 04/14/16 04/14/16 04/14/16 22:00 22:38 23:08 Temperature Pulse Rate [ Apical] Pulse Rate [ Left Radial] Respiratory 22 20 Rate Respiratory 20 Rate [Abdomen] Respiratory 20 Rate [Chest] Blood Pressure [Left Arm] O2 Sat by Pulse Oximetry 04/15/16 04/15/16 04/15/16 00:00 01:24 01:54 Temperature 98.8 F Pulse Rate [ Apical] Pulse Rate [ 98 H Left Radial] Respiratory 18 20 20 Rate Respiratory Rate [Abdomen] Respiratory Rate [Chest] Blood Pressure 129/75 [Left Arm] O2 Sat by Pulse 96 Oximetry 04/15/16 04/15/16 04/15/16 04:00 04:29 04:59 Temperature 98.6 F Pulse Rate [ Apical] Pulse Rate [ 83 Left Radial] Respiratory 18 20 20 Rate Respiratory Rate [Abdomen] Respiratory Rate [Chest] Blood Pressure 115/66 [Left Arm] O2 Sat by Pulse 96 Oximetry 04/15/16 08:00 Temperature 98.0 F Pulse Rate [ 91 H Apical] Pulse Rate [ Left Radial] Respiratory 20 Rate Respiratory Rate [Abdomen] Respiratory Rate [Chest] Blood Pressure 108/73 [Left Arm] O2 Sat by Pulse 98 Oximetry - Abdomen soft, tender (op site), bowel sounds hypoactive, wound (dressings dry and clear) - Labs 04/15/16 04:10 04/15/16 04:10 Diabetes panel 04/15/16 Range/Units 04:10 Sodium 143 (137-145) mmol/L Potassium 3.5 L (3.6-5.0) mmol/L Chloride 108.5 H (98-107) mmol/L Carbon Dioxide 26 (22-30) mmol/L BUN 6 L (7-17) mg/dL Creatinine 0.4 L (0.7-1.2) mg/dL Glucose 126 H (65-100) mg/dL Calcium 8.0 L (8.4-10.2) mg/dL Calcium panel 04/15/16 Range/Units 04:10 Calcium 8.0 L (8.4-10.2) mg/dL Pituitary panel 04/15/16 Range/Units 04:10 Sodium 143 (137-145) mmol/L Potassium 3.5 L (3.6-5.0) mmol/L Chloride 108.5 H (98-107) mmol/L Carbon Dioxide 26 (22-30) mmol/L BUN 6 L (7-17) mg/dL Creatinine 0.4 L (0.7-1.2) mg/dL Glucose 126 H (65-100) mg/dL Calcium 8.0 L (8.4-10.2) mg/dL Adrenal panel 04/15/16 Range/Units 04:10 Sodium 143 (137-145) mmol/L Potassium 3.5 L (3.6-5.0) mmol/L Chloride 108.5 H (98-107) mmol/L Carbon Dioxide 26 (22-30) mmol/L BUN 6 L (7-17) mg/dL Creatinine 0.4 L (0.7-1.2) mg/dL Glucose 126 H (65-100) mg/dL Calcium 8.0 L (8.4-10.2) mg/dL
[2016-04-15] MEDS: KCL 10MEQ/100ML 100 ML IV SCH ×4 (10:27→12:40)
--- NOTE | 2016-04-15 13:30 | Progress Note ---
Assessment and Plan Assessment and plan: Patient is a 47-year-old -[place] female who presented to the hospital with complaint of abdominal pain and left-sided chest pain for 3 days. History concerning for ileus stress tests performed today negative. CTA negative for pulmonary embolism but did note a mild aortic aneurysmal dilatation. Some concerns about possible mass in the left adnexal area, the uterus and also concerning for inflammatory or infectious colitis. * Acute colitis infectious with associated large bowel obstruction * Large bowel obstruction with lesion on the sigmoid colon. * Atypical chest pain-likely secondary to reflux disease * Abdominal pain secondary to obstructive pathology * Hypokalemia- Replace * Hypotension Plan: * She is status post exploratory laparotomy sigmoid colectomy and end colostomy. Still awaiting pathology report. Per Surgeon about malignancy. Possibly chronic diverticulitis * Ice chips okay * Replaced potassium and also check magnesium level. * Continue IV fluids * Stool for C. difficile no growth. * Stress test negative. * Continue pain control and PPI * Vaginal ultrasound with no evidence of ovarian mass. * Colonoscopy outpatient when clinically improved * DVT/GI prophylaxis History Interval history: Follow-up Chest pain and abdominal pain post op day #2 Patient seen and examined this morning in no acute distress surgical site pain. Otherwise no acute distress and no nausea or vomiting were reports "Burping". Denies any fever. Blood pressure controlled No adverse events reported to me by nursing staff Hospitalist Physical - Physical exam Narrative exam: VITAL SIGNS: Reviewed. GENERAL: The patient appeared well nourished and normally developed. Vital signs as documented. HEAD: No signs of head trauma. EYES: Pupils are equal. Extraocular motions intact. EARS: Hearing grossly intact. MOUTH: Oropharynx is normal. NECK: No adenopathy, no JVD. CHEST: Chest with clear breath sounds bilaterally. No wheezes, rales, or rhonchi. CARDIAC: Regular rate and rhythm. S1 and S2, without murmurs, gallops, or rubs. VASCULAR: No Edema. Peripheral pulses normal and equal in all extremities. ABDOMEN: Soft, no distention, colostomy in place, nontender, tissues viable.. No rebound or guarding, and no masses palpated. Bowel Sounds hypoactive. MUSCULOSKELETAL: Good range of motion of all major joints. Extremities without clubbing, cyanosis or edema. NEUROLOGIC EXAM: Alert and oriented x 3. No focal sensory or strength deficits. Speech normal. Follows commands. PSYCHIATRIC: Mood normal. SKIN: No rash or lesions. - Constitutional Vitals: Temp Pulse Resp BP Pulse Ox 98.0 F 91 H 20 108/73 98 04/15/16 08:00 04/15/16 08:00 04/15/16 08:00 04/15/16 08:00 04/15/16 08:00 Results - Labs CBC & Chem 7: 04/15/16 04:10 04/15/16 04:10 Labs: Laboratory Last Values WBC 5.9 K/mm3 (4.5-11.0) 04/15/16 04:10 RBC 3.92 M/mm3 (3.65-5.03) 04/15/16 04:10 Hgb 10.6 gm/dl (10.1-14.3) 04/15/16 04:10 Hct 32.8 % (30.3-42.9) 04/15/16 04:10 MCV 84 fl (79-97) 04/15/16 04:10 MCH 27 pg (28-32) L 04/15/16 04:10 MCHC 33 % (30-34) 04/15/16 04:10 RDW 15.9 % (13.2-15.2) H 04/15/16 04:10 Plt Count 164 K/mm3 (140-440) 04/15/16 04:10 Lymph % (Auto) 10.1 % (13.4-35.0) L 04/15/16 04:10 [place] % (Auto) 10.8 % (0.0-7.3) H 04/15/16 04:10 Eos % (Auto) 0.4 % (0.0-4.3) 04/15/16 04:10 Baso % (Auto) 0.1 % (0.0-1.8) 04/15/16 04:10 Lymph # 0.6 K/mm3 (1.2-5.4) L 04/15/16 04:10 [place] # 0.6 K/mm3 (0.0-0.8) 04/15/16 04:10 Eos # 0.0 K/mm3 (0.0-0.4) 04/15/16 04:10 Baso # 0.0 K/mm3 (0.0-0.1) 04/15/16 04:10 Seg Neutrophils % 78.6 % (40.0-70.0) H 04/15/16 04:10 Seg Neutrophils # 4.7 K/mm3 (1.8-7.7) 04/15/16 04:10 Sodium 143 mmol/L (137-145) 04/15/16 04:10 Potassium 3.5 mmol/L (3.6-5.0) L 04/15/16 04:10 Chloride 108.5 mmol/L (98-107) H 04/15/16 04:10 Carbon Dioxide 26 mmol/L (22-30) 04/15/16 04:10 Anion Gap 12 mmol/L 04/15/16 04:10 BUN 6 mg/dL (7-17) L 04/15/16 04:10 Creatinine 0.4 mg/dL (0.7-1.2) L 04/15/16 04:10 Estimated GFR > 60 ml/min 04/15/16 04:10 BUN/Creatinine Ratio 15.00 % 04/15/16 04:10 Glucose 126 mg/dL (65-100) H 04/15/16 04:10 Calcium 8.0 mg/dL (8.4-10.2) L 04/15/16 04:10 Total Bilirubin 0.5 mg/dL (0.1-1.2) 04/11/16 03:38 AST 9 units/L (5-40) 04/11/16 03:38 ALT 5 units/L (7-56) L 04/11/16 03:38 Alkaline Phosphatase 87 units/L (35-129) 04/11/16 03:38 Total Creatine Kinase 31 units/L (30-135) 04/11/16 03:38 CK-MB (CK-2) 1.2 ng/mL (0.0-4.0) 04/11/16 03:38 CK-MB (CK-2) Rel Index 3.8 (0-4) 04/11/16 03:38 Troponin T < 0.010 ng/mL (0.00-0.029) 04/11/16 03:38 Total Protein 6.4 g/dL (6.3-8.2) 04/11/16 03:38 Albumin 3.5 g/dL (3.9-5) L 04/11/16 03:38 Albumin/Globulin Ratio 1.2 % 04/11/16 03:38 Amylase 48 units/L (27-131) 04/10/16 16:46 Lipase 10 units/L (13-60) L 04/10/16 16:46
[2016-04-16] MEDS: DILAUDID IV PRN ×7 (00:20→21:52)
[2016-04-16] MEDS: D5NS 1,000 ML IV SCH (00:30)
[2016-04-16 05:45] LABS: Blood Urea Nitrogen 5 mg/dL (7-17); Calcium 7.9 mg/dL (8.4-10.2); Carbon Dioxide 29 mmol/L (22-30); Chloride 105.5 mmol/L (98-107); Glucose 106 mg/dL (65-100); Magnesium 1.6 mg/dL (1.7-2.3); Potassium 3.3 mmol/L (3.6-5.0); Sodium 142 mmol/L (137-145)
[2016-04-16 05:49] LABS: Anion Gap 11 mmol/L
[2016-04-16] MEDS ORDERED: KCL 10MEQ/100ML 100 ML IV SCH (08:30)
[2016-04-16] MEDS ORDERED: MAGNESIUM SULFATE 2GM/50ML 50 ML IV ONE (08:30)
[2016-04-16] MEDS: LOVENOX SUB-Q SCH (10:00)
[2016-04-16] MEDS: PROTONIX IV SCH (10:00)
--- NOTE | 2016-04-16 12:04 | Progress Note ---
Assessment and Plan Assessment and plan: 1. Large bowel obstruction and colon lesion- post ex lap with post op ileus; no malignancy as per pathology report; cont manx as per sx; NPO; cont IVF with potassium supplementation; IV dilaudid for pain; monitor for respiratory depression 2. Hypokalemia- will replace with IV supplementation added to IVF 3. ACute blood loss anemia from sx; monitor; no need for transfusion at this time 4. DVT prophylaxis- lovenox; PT for ambulation History Interval history: f/u ex laparotomy; colon mass; day 3 post op Patient seen at the bedside; complained about the IV potassium causing discomfort with burning and swellling; no flatus; pain getting better Hospitalist Physical - Constitutional Vitals: Temp Pulse Resp BP Pulse Ox 98.2 F 86 18 135/74 97 04/16/16 04:00 04/16/16 04:00 04/16/16 07:35 04/16/16 04:00 04/16/16 04:00 General appearance: Present: no acute distress, well-nourished - EENT Eyes: Present: PERRL, EOM intact. Absent: scleral icterus, conjunctival injection ENT: hearing intact, clear oral mucosa, no oropharyngeal erythema, no poor dentition - Neck Neck: Present: supple, normal ROM. Absent: enlarged thyroid, masses or JVD - Respiratory Respiratory effort: normal Respiratory: bilateral: diminished, negative: rales, rhonchi, wheezing - Cardiovascular Rhythm: regular Heart Sounds: Present: S1 & S2. Absent: gallop - Extremities Extremities: no ischemia, pulses intact, pulses symmetrical, No edema Peripheral Pulses: within normal limits - Abdominal General gastrointestinal: tender, distended, absent bowel sounds - Integumentary Integumentary: Present: clear - Psychiatric Psychiatric: appropriate mood/affect, cooperative - Neurologic Neurologic: CNII-XII intact, moves all extremities Results - Labs CBC & Chem 7: 04/15/16 04:10 04/16/16 05:01 Labs: Laboratory Last Values WBC 5.9 K/mm3 (4.5-11.0) 04/15/16 04:10 RBC 3.92 M/mm3 (3.65-5.03) 04/15/16 04:10 Hgb 10.6 gm/dl (10.1-14.3) 04/15/16 04:10 Hct 32.8 % (30.3-42.9) 04/15/16 04:10 MCV 84 fl (79-97) 04/15/16 04:10 MCH 27 pg (28-32) L 04/15/16 04:10 MCHC 33 % (30-34) 04/15/16 04:10 RDW 15.9 % (13.2-15.2) H 04/15/16 04:10 Plt Count 164 K/mm3 (140-440) 04/15/16 04:10 Lymph % (Auto) 10.1 % (13.4-35.0) L 04/15/16 04:10 [place] % (Auto) 10.8 % (0.0-7.3) H 04/15/16 04:10 Eos % (Auto) 0.4 % (0.0-4.3) 04/15/16 04:10 Baso % (Auto) 0.1 % (0.0-1.8) 04/15/16 04:10 Lymph # 0.6 K/mm3 (1.2-5.4) L 04/15/16 04:10 [place] # 0.6 K/mm3 (0.0-0.8) 04/15/16 04:10 Eos # 0.0 K/mm3 (0.0-0.4) 04/15/16 04:10 Baso # 0.0 K/mm3 (0.0-0.1) 04/15/16 04:10 Seg Neutrophils % 78.6 % (40.0-70.0) H 04/15/16 04:10 Seg Neutrophils # 4.7 K/mm3 (1.8-7.7) 04/15/16 04:10 Sodium 142 mmol/L (137-145) 04/16/16 05:01 Potassium 3.3 mmol/L (3.6-5.0) L 04/16/16 05:01 Chloride 105.5 mmol/L (98-107) 04/16/16 05:01 Carbon Dioxide 29 mmol/L (22-30) 04/16/16 05:01 Anion Gap 11 mmol/L 04/16/16 05:01 BUN 5 mg/dL (7-17) L 04/16/16 05:01 Creatinine 0.4 mg/dL (0.7-1.2) L 04/16/16 05:01 Estimated GFR > 60 ml/min 04/16/16 05:01 BUN/Creatinine Ratio 12.50 % 04/16/16 05:01 Glucose 106 mg/dL (65-100) H 04/16/16 05:01 Calcium 7.9 mg/dL (8.4-10.2) L 04/16/16 05:01 Magnesium 1.6 mg/dL (1.7-2.3) L 04/16/16 05:01 Total Bilirubin 0.5 mg/dL (0.1-1.2) 04/11/16 03:38 AST 9 units/L (5-40) 04/11/16 03:38 ALT 5 units/L (7-56) L 04/11/16 03:38 Alkaline Phosphatase 87 units/L (35-129) 04/11/16 03:38 Total Creatine Kinase 31 units/L (30-135) 04/11/16 03:38 CK-MB (CK-2) 1.2 ng/mL (0.0-4.0) 04/11/16 03:38 CK-MB (CK-2) Rel Index 3.8 (0-4) 04/11/16 03:38 Troponin T < 0.010 ng/mL (0.00-0.029) 04/11/16 03:38 Total Protein 6.4 g/dL (6.3-8.2) 04/11/16 03:38 Albumin 3.5 g/dL (3.9-5) L 04/11/16 03:38 Albumin/Globulin Ratio 1.2 % 04/11/16 03:38 Amylase 48 units/L (27-131) 04/10/16 16:46 Lipase 10 units/L (13-60) L 04/10/16 16:46 pathology- no dysplasia or malignancy; diverticulsosis
[2016-04-16] MEDS: D5W/0.45% NACL/KCL 20 MEQ 1,000 ML IV SCH (12:15)
--- NOTE | 2016-04-16 12:23 | Progress Note ---
Assessment and Plan IMP: Doing well 3rd post op day, resolved post op ileus. PLAN: Clear liquis diet. ET Nurse evaluation for wound and ostomy care and education. Subjective Date of service: 04/16/16 Patient Reports: Positive: no new complaints, pain is less, voiding w/o difficulty, flatus, no bowel movement Objective Vital Signs - 12hr 04/16/16 04/16/16 04:00 07:35 Temperature 98.2 F Pulse Rate [ 86 Left Radial] Respiratory 18 18 Rate Blood Pressure 135/74 [Left Arm] O2 Sat by Pulse 97 Oximetry - Abdomen soft, tender (minimal incisional pain), bowel sounds normal, wound (dressings dry and clear) - Labs 04/15/16 04:10 04/16/16 05:01 Diabetes panel 04/16/16 Range/Units 05:01 Sodium 142 (137-145) mmol/L Potassium 3.3 L (3.6-5.0) mmol/L Chloride 105.5 (98-107) mmol/L Carbon Dioxide 29 (22-30) mmol/L BUN 5 L (7-17) mg/dL Creatinine 0.4 L (0.7-1.2) mg/dL Glucose 106 H (65-100) mg/dL Calcium 7.9 L (8.4-10.2) mg/dL Calcium panel 04/16/16 Range/Units 05:01 Calcium 7.9 L (8.4-10.2) mg/dL Pituitary panel 04/16/16 Range/Units 05:01 Sodium 142 (137-145) mmol/L Potassium 3.3 L (3.6-5.0) mmol/L Chloride 105.5 (98-107) mmol/L Carbon Dioxide 29 (22-30) mmol/L BUN 5 L (7-17) mg/dL Creatinine 0.4 L (0.7-1.2) mg/dL Glucose 106 H (65-100) mg/dL Calcium 7.9 L (8.4-10.2) mg/dL Adrenal panel 04/16/16 Range/Units 05:01 Sodium 142 (137-145) mmol/L Potassium 3.3 L (3.6-5.0) mmol/L Chloride 105.5 (98-107) mmol/L Carbon Dioxide 29 (22-30) mmol/L BUN 5 L (7-17) mg/dL Creatinine 0.4 L (0.7-1.2) mg/dL Glucose 106 H (65-100) mg/dL Calcium 7.9 L (8.4-10.2) mg/dL - Imaging Additional Studies: Pathology: negative for malignancy.
[2016-04-17] MEDS: D5W/0.45% NACL/KCL 20 MEQ 1,000 ML IV SCH (00:34)
[2016-04-17] MEDS: DILAUDID IV PRN ×3 (02:45→20:29)
[2016-04-17] MEDS: LOVENOX SUB-Q SCH (10:00)
[2016-04-17] MEDS: PROTONIX IV SCH (10:00)
--- NOTE | 2016-04-17 13:29 | Event Note ---
Date: 04/17/16 see patient' paper chart for written progress note; EMR was down
[2016-04-17 14:50] LABS: BUN/Creatinine Ratio 13.33; Blood Urea Nitrogen 4 mg/dL (7-17); Calcium 7.7 mg/dL (8.4-10.2); Carbon Dioxide 29 mmol/L (22-30); Chloride 101.4 mmol/L (98-107); Glucose 116 mg/dL (65-100); Magnesium 1.8 mg/dL (1.7-2.3); Phosphorous 1.6 mg/dL (2.5-4.5); Potassium 3.5 mmol/L (3.6-5.0); Sodium 137 mmol/L (137-145)
[2016-04-17 14:50] LABS: Basophils % (Auto) 0.3 % (0.0-1.8); Eosinophils % (Auto) 2.3 % (0.0-4.3); Hematocrit 30.7 % (30.3-42.9); Hemoglobin 9.9 gm/dl (10.1-14.3); Mean Corpuscular HGB Conc 32 % (30-34); Mean Corpuscular Hemoglobin 27 pg (28-32); Mean Corpuscular Volume 84 fl (79-97); Platelet Count 180 K/mm3 (140-440); Red Blood Count 3.66 M/mm3 (3.65-5.03); Red Cell Distribution Width 15.5 % (13.2-15.2); White Blood Count 3.8 K/mm3 (4.5-11.0)
[2016-04-17 15:30] LABS: Anion Gap 10 mmol/L
--- NOTE | 2016-04-17 15:31 | Progress Note ---
Assessment and Plan IMP: Doing well 4th post day. PLAN: GI soft diet. Waiting for ET nurse evaluation. Subjective Date of service: 04/17/16 Patient Reports: Positive: no new complaints, feels better, tolerating liquids well, voiding w/o difficulty, flatus, other ([employer] system was down when I saw her this am.) Objective Vital Signs - 12hr 04/17/16 10:00 O2 Sat by Pulse 96 Oximetry - Abdomen soft, tender (mild tenderness in the op site), bowel sounds normal, wound ( dressings dry and clear.) - Labs 04/15/16 04:10 04/16/16 05:01
[2016-04-18 06:00] LABS: Anion Gap 15 mmol/L; Blood Urea Nitrogen 3 mg/dL (7-17); Calcium 8.1 mg/dL (8.4-10.2); Carbon Dioxide 27 mmol/L (22-30); Chloride 100.5 mmol/L (98-107); Glucose 104 mg/dL (65-100); Potassium 3.7 mmol/L (3.6-5.0); Sodium 139 mmol/L (137-145)
[2016-04-18] MEDS: LOVENOX SUB-Q SCH (09:40)
[2016-04-18] MEDS: NORCO 5/325 PO PRN ×3 (10:54→22:19)
--- NOTE | 2016-04-18 11:55 | Progress Note ---
Assessment and Plan Assessment and plan: 1. Large bowel obstruction and colon lesion- post ex lap with resolved post op ileus; no malignancy as per pathology report; cotn current mechanical soft diet as per surgery; will d/c when cleared by surgery; HHN for colostomy care 2. Hypokalemia- now corrected 3. ACute blood loss anemia from sx; monitor; no need for transfusion at this time; stable 4. DVT prophylaxis- lovenox; PT for ambulation History Interval history: f/u ex laparotomy; colon mass; day 3 post op Patient seen at the bedside; no complaints today; started on soft diet yesterday and tolerating well; BM Hospitalist Physical - Constitutional Vitals: Temp Pulse Resp BP Pulse Ox 98.3 F 61 18 138/75 99 04/18/16 07:39 04/18/16 07:39 04/18/16 07:39 04/18/16 07:39 04/18/16 07:39 General appearance: Present: no acute distress, well-nourished - EENT Eyes: Present: PERRL, EOM intact. Absent: scleral icterus, conjunctival injection ENT: hearing intact, clear oral mucosa, no oropharyngeal erythema, no poor dentition - Neck Neck: Present: supple, normal ROM. Absent: enlarged thyroid, masses or JVD - Respiratory Respiratory effort: normal Respiratory: negative: diminished, rales, rhonchi, wheezing - Cardiovascular Rhythm: regular Heart Sounds: Present: S1 & S2. Absent: gallop - Extremities Extremities: no ischemia, pulses intact, pulses symmetrical, No edema Peripheral Pulses: within normal limits - Abdominal General gastrointestinal: soft, non-tender, non-distended, normal bowel sounds - Integumentary Integumentary: Present: clear - Psychiatric Psychiatric: appropriate mood/affect, intact judgment & insight, cooperative - Neurologic Neurologic: CNII-XII intact, moves all extremities Results - Labs CBC & Chem 7: 04/17/16 05:56 04/18/16 05:14 Labs: Laboratory Last Values WBC 3.8 K/mm3 (4.5-11.0) L 04/17/16 05:56 RBC 3.66 M/mm3 (3.65-5.03) 04/17/16 05:56 Hgb 9.9 gm/dl (10.1-14.3) L 04/17/16 05:56 Hct 30.7 % (30.3-42.9) 04/17/16 05:56 MCV 84 fl (79-97) 04/17/16 05:56 MCH 27 pg (28-32) L 04/17/16 05:56 MCHC 32 % (30-34) 04/17/16 05:56 RDW 15.5 % (13.2-15.2) H 04/17/16 05:56 Plt Count 180 K/mm3 (140-440) 04/17/16 05:56 Lymph % (Auto) 15.5 % (13.4-35.0) 04/17/16 05:56 [place] % (Auto) 10.1 % (0.0-7.3) H 04/17/16 05:56 Eos % (Auto) 2.3 % (0.0-4.3) 04/17/16 05:56 Baso % (Auto) 0.3 % (0.0-1.8) 04/17/16 05:56 Lymph # 0.6 K/mm3 (1.2-5.4) L 04/17/16 05:56 [place] # 0.4 K/mm3 (0.0-0.8) 04/17/16 05:56 Eos # 0.1 K/mm3 (0.0-0.4) 04/17/16 05:56 Baso # 0.0 K/mm3 (0.0-0.1) 04/17/16 05:56 Seg Neutrophils % 71.8 % (40.0-70.0) H 04/17/16 05:56 Seg Neutrophils # 2.7 K/mm3 (1.8-7.7) 04/17/16 05:56 Sodium 139 mmol/L (137-145) 04/18/16 05:14 Potassium 3.7 mmol/L (3.6-5.0) 04/18/16 05:14 Chloride 100.5 mmol/L (98-107) 04/18/16 05:14 Carbon Dioxide 27 mmol/L (22-30) 04/18/16 05:14 Anion Gap 15 mmol/L 04/18/16 05:14 BUN 3 mg/dL (7-17) L 04/18/16 05:14 Creatinine 0.4 mg/dL (0.7-1.2) L 04/18/16 05:14 Estimated GFR > 60 ml/min 04/18/16 05:14 BUN/Creatinine Ratio 7.50 % 04/18/16 05:14 Glucose 104 mg/dL (65-100) H 04/18/16 05:14 Calcium 8.1 mg/dL (8.4-10.2) L 04/18/16 05:14 Phosphorus 1.6 mg/dL (2.5-4.5) L 04/17/16 04:00 Magnesium 1.8 mg/dL (1.7-2.3) 04/17/16 04:00 Total Bilirubin 0.5 mg/dL (0.1-1.2) 04/11/16 03:38 AST 9 units/L (5-40) 04/11/16 03:38 ALT 5 units/L (7-56) L 04/11/16 03:38 Alkaline Phosphatase 87 units/L (35-129) 04/11/16 03:38 Total Creatine Kinase 31 units/L (30-135) 04/11/16 03:38 CK-MB (CK-2) 1.2 ng/mL (0.0-4.0) 04/11/16 03:38 CK-MB (CK-2) Rel Index 3.8 (0-4) 04/11/16 03:38 Troponin T < 0.010 ng/mL (0.00-0.029) 04/11/16 03:38 Total Protein 6.4 g/dL (6.3-8.2) 04/11/16 03:38 Albumin 3.5 g/dL (3.9-5) L 04/11/16 03:38 Albumin/Globulin Ratio 1.2 % 04/11/16 03:38 Amylase 48 units/L (27-131) 04/10/16 16:46 Lipase 10 units/L (13-60) L 04/10/16 16:46
[2016-04-18] MEDS: PROTONIX PO SCH (16:23)
[2016-04-18] MEDS: DILAUDID IV PRN (21:52)
[2016-04-19] MEDS: NORCO 5/325 PO PRN ×3 (02:17→13:40)
[2016-04-19 09:13] VITALS: BP 119/67
[2016-04-19] MEDS: PROTONIX PO SCH (09:25)
[2016-04-19] MEDS: LOVENOX SUB-Q SCH (09:25)
--- NOTE | 2016-04-19 10:24 | Discharge Summary ---
Providers - Providers Date of Admission: 04/10/16 20:49 Date of discharge: 04/19/16 Attending physician: SONYA BUNN 04/10/16 Consult to Cardiac Rehabilitation [CONS] Routine Reason For Exam: Phase I 04/13/16 11:46 Consult to Physician [CONS] Routine Consulting Provider: GABI LONDON Reason For Exam: abdominal pain, obstrction vs mass Place consult to:: dr. london Notified:: answering service Phone number called:: Was contact made?: Yes If yes, spoke with:: kathleen Time called:: 12:49 04/16/16 12:18 Consult to Wound/ET Nurse [CONS] Routine Reason For Exam: wound eval and colostomy care and education Primary care physician: ASSOCIATE PROFESSOR OF BIOSTATISTICS Hospitalization Reason for admission: abdominal pain; colitis Condition: Stable Pertinent studies: CT scan of the abdomen and pelvis-abnormal appearance of the distal descending colon proximal sigmoid colon with wall thickening and inflammatory changes in the adjacent mesentery; could be an inflammatory or infectious colitis; malignancy cannot be excluded laparotomy -distal descending and proximal sigmoid colectomy with end colostomy. #2. Splenic flexure takedown. Hospital course: Maynor presented to the emergency room with abdominal pain. She was evaluated with a CT scan and also seen by the surgeon. He was started on antibiotics initially for treatment of possible inflammatory colitis however with the stenosis of the colon on an ongoing abdominal pain with signs of obstruction she had laparotomy done. Postoperatively she did well. Disposition: DC/TX HOME UNDER HOME HEALTH Time spent for discharge: 31 minutes - Discharge Diagnoses (1) Abdominal pain Status: Acute Qualifiers: Abdominal location: A (2) Colitis Status: Acute Core Measure Documentation - Palliative Care Palliative Care/ Comfort Measures: Not Applicable - Core Measures Any of the following diagnoses?: none Exam - Constitutional Vitals: Temp Pulse Resp BP Pulse Ox 97.8 F 54 L 18 119/67 98 04/19/16 08:00 04/19/16 08:00 04/19/16 08:00 04/19/16 08:00 04/19/16 08:00 General appearance: Present: no acute distress, well-nourished - EENT Eyes: Present: PERRL, EOM intact. Absent: scleral icterus, conjunctival injection ENT: hearing intact, clear oral mucosa, no oropharyngeal erythema, no poor dentition - Neck Neck: Present: supple, normal ROM. Absent: enlarged thyroid, masses or JVD - Cardiovascular Rhythm: regular Heart Sounds: Present: S1 & S2 - Extremities Extremities: no ischemia, pulses intact, pulses symmetrical, No edema, normal temperature Peripheral Pulses: within normal limits - Abdominal General gastrointestinal: Present: soft, non-tender, non-distended, other ( colostomy in place; surgical dressing in place) - Rectal Rectal Exam: deferred - Integumentary Integumentary: Present: clear - Musculoskeletal Musculoskeletal: strength equal bilaterally - Psychiatric Psychiatric: appropriate mood/affect, intact judgment & insight - Neurologic Neurologic: CNII-XII intact, moves all extremities Plan Activity: advance as tolerated Diet: regular Durable Medical Equipment Needed Upon Discharge: Walker-Standard Follow up with: PRIMARY CARE, [Primary Care Provider] - 3-5 Days GABI LONDON MD [Staff Physician] - 7 Days Prescriptions: HYDROcodone/APAP 5-325 [[place] 5-325 mg TAB] 1 each PO Q4H PRN #15 tablet PRN Reason: Pain, Moderate (4-6)
--- NOTE | 2016-04-19 11:06 | Query- GI Bleeding ---
Dear Dr. Ruben Mccabe Date: April 19, 2016 Grocery Clerk Marking/CDS: Simon Kumar Phone#: Exercise your independent professional judgment when responding to query. Questions asked do not imply a particular answer is desired or expected. We greatly appreciate your clarification on this issue. Clinical Documentation States: 65 y/o AAF with history of gastric ulcer is admitted for epigastric & LLQ pain. Operative Report by Dr. Cintron on 04/13 states : "Large bowel obstruction", Operation: "1. Distal descending and proximal sigmoid colectomy with end colostomy" PN by Dr. Mccabe on 04/16 states : "1. Large bowel obstruction and colon lesion", "3. ACute blood loss anemia from sx" Clinical Findings Show: Pathology Surgical Specimen (received 04/15) : "Colon, sigmoid, partial resection : Diverticulosis, Marked subcutaneous mixed inflammation, foreign body giant cells, and reactive changes consistent with ruptured diverticulum" 04/14 04/15 04/17 Hgb 11.7 10.6 9.9 L Hct 35.8 32.8 30.7 Please clarify the Acuity and Etiology of the condition of the " gastrointestinal bleed", if applicable: A. Acuity: [ ] Acute [ ] Acute on Chronic [ ] Chronic B. Etiology - Lower GI tract 3 [ ] Diverticular disease [ ] Internal hemorrhoids [ ] A.V. Malformations [ ] Colonic polyps [ ] Anal fissures [ ] Ulcerative Proctitis/colitis [ ] Colonic Cancer [ ] Chrons disease [ ] Infectious colitis [ ] Angiodysplasia [ ] Radiation colitis [ ] Aortoenteric fistula [ ] Ischemic colitis [ ] Angioma [ ] Other: [ ] Volvulus [ ] Unable to determine Present on Admission: [ ] Yes (Y) [ ] Clinically undeterminable (W) [ ] No (N) Please also document response in your Progress Notes and/or Discharge Summary and indicate if the condition was present on admission. This not applicable--Patient had acute blood from loss anemia from the surgical procedure as stated in the note. Thanks Jeremias Baird
== END 2016-04-19 15:30 | disposition home health service (06) | DRG 330 ==
LOC: ED 15:19 → 3A 20:49 → 2B-SURG 04-13 20:15
PROVIDERS: ADMIT Internal Medicine; ATTEND Hospitalist
PROC: 0DBM0ZZ Excision of Descending Colon, Open Approach (ICD-10-PCS; principal; 2016-04-13)
PROC: 0DBN0ZZ Excision of Sigmoid Colon, Open Approach (ICD-10-PCS; principal; 2016-04-13)
PROC: 0D1M0Z4 Bypass Descending Colon to Cutaneous, Open Approach (ICD-10-PCS; principal; 2016-04-13)
DX: K56.69 Other intestinal obstruction (principal); D62 Acute posthemorrhagic anemia; A09 Infectious gastroenteritis and colitis, unspecified; M94.0 Chondrocostal junction syndrome [Tietze]; E87.6 Hypokalemia; I71.9 Aortic aneurysm of unspecified site, without rupture; R07.9 Chest pain, unspecified; K21.9 Gastro-esophageal reflux disease without esophagitis; I95.9 Hypotension, unspecified; K56.7 Ileus, unspecified
CPT/HCPCS: 36415; 71275; 74000; 74177; 76830; 76856; 78452; 80048; 80053; 82150; 82550; 82553; 83690; 83735; 84100; 84484; 85025; 85027; 87493; 88307; 93005; 93010; 93017; 96374; 96375; A9502; C9113; J0690; J1100; J1170; J1650; J2405; J2704; J2785; J3010; J3475; J3480; J7030; J7042; J7050; Q9967

== ENCOUNTER 2016-09-04 10:59 | Emergency (ER) | payer SELFPAY ==
[2016-09-04 11:42] LABS: Basophils % (Auto) 0.9 % (0.0-1.8); Eosinophils % (Auto) 0.4 % (0.0-4.3); Hematocrit 37.4 % (30.3-42.9); Hemoglobin 12.2 gm/dl (10.1-14.3); Mean Corpuscular HGB Conc 33 % (30-34); Mean Corpuscular Hemoglobin 27 pg (28-32); Mean Corpuscular Volume 83 fl (79-97); Platelet Count 192 K/mm3 (140-440); Red Blood Count 4.52 M/mm3 (3.65-5.03); Red Cell Distribution Width 15.6 % (13.2-15.2); White Blood Count 4.3 K/mm3 (4.5-11.0)
[2016-09-04 11:53] LABS: Anion Gap 16 mmol/L; BUN/Creatinine Ratio 13.33; Blood Urea Nitrogen 8 mg/dL (7-17); Carbon Dioxide 27 mmol/L (22-30); Chloride 103.7 mmol/L (98-107); Glucose 104 mg/dL (65-100); Potassium 3.5 mmol/L (3.6-5.0); Sodium 143 mmol/L (137-145)
[2016-09-04 23:01] VITALS: BP 134/73
--- NOTE | 2016-09-04 23:09 | Emergency Department Report ---
HPI - General Chief Complaint: Chest Pain Time Seen by Provider: 09/04/16 22:36 - HPI HPI: Room 4 The patient is a 65-year-old female presenting with chief complaint of coughing and sneezing. The patient states for the past 3 days she has had a cough occasionally productive of yellowish beige sputum. Patient states she has been sneezing uncontrollably as well. The patient states she also noticed a dry itching face. The patient states her throat has been "scratchy" and she has had itchy eyes socially with rhinorrhea and a subjective fever. The patient states she only has chest pain when she coughs because she's been coughing so frequently. Patient denies chest pain at rest Location: [see above] Duration: 3 days Quality: Soreness, itching Severity: Moderate Modifying factors: [see above] Context: [see above] Mode of transportation: Unknown ED Past Medical Hx - Past Medical History Additional medical history: States gastric ulcer on EGD several years ago. 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" - Family History Family history: no significant - Social History Smoking Status: Never Smoker Substance Use Type: None - Medications Home Medications: Home Medications Medication Instructions Recorded Confirmed Last Taken Type HYDROcodone/APAP 5-325 [[place] 1 each PO Q4H PRN #15 tablet 04/19/16 Unknown Rx 5-325 mg TAB] Pantoprazole [Protonix TAB] 40 mg PO DAILY #14 tablet 04/19/16 Unknown Rx Amoxicillin [Amoxicillin 250 MG/5 500 mg PO BID #200 ml 09/04/16 Unknown Rx Ml] Loratadine [Claritin] 10 mg PO QDAY #100 ml 09/04/16 Unknown Rx ED Review of Systems ROS: Stated complaint: CHEST PAIN /SOB/SORE THROAT/RASH Other details as noted in HPI Comment: All other systems reviewed and negative Constitutional: fever (subjective) Eyes: denies: eye pain, eye discharge, vision change ENT: throat pain, congestion Respiratory: cough Cardiovascular: denies: palpitations Endocrine: no symptoms reported Gastrointestinal: denies: abdominal pain, nausea, diarrhea Genitourinary: denies: urgency, dysuria, discharge Musculoskeletal: myalgia Skin: denies: rash, lesions Neurological: denies: headache, weakness, paresthesias Psychiatric: denies: anxiety, depression Hematological/Lymphatic: denies: easy bleeding, easy bruising Physical Exam - Physical Exam Vital Signs: Vital Signs 09/04/16 09/04/16 09/04/16 11:11 15:00 20:40 Temperature 98 F 97.6 F 98.4 F Pulse Rate 58 L 64 61 Respiratory 14 20 Rate Blood Pressure 125/81 131/79 Blood Pressure 139/84 [Right] O2 Sat by Pulse 100 100 100 Oximetry 09/04/16 09/04/16 09/04/16 21:31 21:41 21:51 Temperature Pulse Rate 57 L 58 L Respiratory 15 18 Rate Blood Pressure Blood Pressure [Right] O2 Sat by Pulse 100 99 98 Oximetry 09/04/16 09/04/16 09/04/16 22:01 22:11 22:21 Temperature Pulse Rate 64 55 L 74 Respiratory 15 10 L 22 Rate Blood Pressure 136/77 133/77 Blood Pressure [Right] O2 Sat by Pulse 100 100 99 Oximetry 09/04/16 09/04/16 09/04/16 22:24 22:30 22:41 Temperature Pulse Rate 57 L 58 L Respiratory 20 10 L 18 Rate Blood Pressure 126/77 126/77 Blood Pressure [Right] O2 Sat by Pulse 98 100 99 Oximetry 09/04/16 22:51 Temperature Pulse Rate 62 Respiratory 16 Rate Blood Pressure 134/73 Blood Pressure [Right] O2 Sat by Pulse 99 Oximetry Physical Exam: GENERAL: The patient is well-developed well-nourished female lying on stretcher not appearing to be in acute distress. [] HEENT: Normocephalic. Atraumatic. Extraocular motions are intact. Patient has moist mucous membranes. Mildly erythematous oropharynx with exudate present on the left. Uvula midline NECK: Supple. No meningitic signs are noted. There is mild cervical adenopathy appreciated CHEST/LUNGS: Clear to auscultation. There is no respiratory distress noted. HEART/CARDIOVASCULAR: Regular. There is no tachycardia. There is no gallop rub or murmur. ABDOMEN: Abdomen is soft, nontender. Patient has normal bowel sounds. There is no abdominal distention. SKIN: There is no rash. There is no edema. There is no diaphoresis. NEURO: The patient is awake, alert, and oriented. The patient is cooperative. The patient has normal speech MUSCULOSKELETAL: There is no evidence of acute injury. ED Course Vital Signs 09/04/16 09/04/16 09/04/16 11:11 15:00 20:40 Temperature 98 F 97.6 F 98.4 F Pulse Rate 58 L 64 61 Respiratory 14 20 Rate Blood Pressure 125/81 131/79 Blood Pressure 139/84 [Right] O2 Sat by Pulse 100 100 100 Oximetry 09/04/16 09/04/16 09/04/16 21:31 21:41 21:51 Temperature Pulse Rate 57 L 58 L Respiratory 15 18 Rate Blood Pressure Blood Pressure [Right] O2 Sat by Pulse 100 99 98 Oximetry 09/04/16 09/04/16 09/04/16 22:01 22:11 22:21 Temperature Pulse Rate 64 55 L 74 Respiratory 15 10 L 22 Rate Blood Pressure 136/77 133/77 Blood Pressure [Right] O2 Sat by Pulse 100 100 99 Oximetry 09/04/16 09/04/16 09/04/16 22:24 22:30 22:41 Temperature Pulse Rate 57 L 58 L Respiratory 20 10 L 18 Rate Blood Pressure 126/77 126/77 Blood Pressure [Right] O2 Sat by Pulse 98 100 99 Oximetry 09/04/16 22:51 Temperature Pulse Rate 62 Respiratory 16 Rate Blood Pressure 134/73 Blood Pressure [Right] O2 Sat by Pulse 99 Oximetry ED Medical Decision Making - Lab Data Result diagrams: 09/04/16 11:20 09/04/16 11:20 Laboratory Tests 09/04/16 09/04/16 09/04/16 11:20 11:20 14:21 WBC 4.3 L RBC 4.52 Hgb 12.2 Hct 37.4 MCV 83 MCH 27 L MCHC 33 RDW 15.6 H Plt Count 192 Lymph % (Auto) 26.6 [place] % (Auto) 8.7 H Eos % (Auto) 0.4 Baso % (Auto) 0.9 Lymph # 1.1 L [place] # 0.4 Eos # 0.0 Baso # 0.0 Seg Neutrophils % 63.4 Seg Neutrophils # 2.7 Sodium 143 Potassium 3.5 L Chloride 103.7 Carbon Dioxide 27 Anion Gap 16 BUN 8 Creatinine 0.6 L Estimated GFR > 60 BUN/Creatinine Ratio 13.33 Glucose 104 H Calcium 9.0 Troponin T < 0.010 < 0.010 09/04/16 16:58 WBC RBC Hgb Hct MCV MCH MCHC RDW Plt Count Lymph % (Auto) [place] % (Auto) Eos % (Auto) Baso % (Auto) Lymph # [place] # Eos # Baso # Seg Neutrophils % Seg Neutrophils # Sodium Potassium Chloride Carbon Dioxide Anion Gap BUN Creatinine Estimated GFR BUN/Creatinine Ratio Glucose Calcium Troponin T < 0.010 - EKG Data -: EKG Interpreted by Me EKG shows normal: sinus rhythm Rate: normal - EKG Data When compared to previous EKG there are: no significant change Interpretation: unchanged when compared t (04/11/2016), nonspecific ST-T wave jose - Radiology Data Radiology results: image reviewed (chest x-ray) interpreted by me: Chest X-ray- no focal infiltrates, no pneumothorax - Differential Diagnosis pneumonia, bronchitis, pharyngitis Critical care attestation.: If time is entered above; I have spent that time in minutes in the direct care of this critically ill patient, excluding procedure time. ED Disposition Clinical Impression: Acute pharyngitis, URI (upper respiratory infection) Disposition: DC- TO HOME OR SELFCARE Is pt being admited?: No Does the pt Need Aspirin: No Condition: Stable Instructions: Pharyngitis (ED) Additional Instructions: Return to the emergency department immediately should you develop worsening symptoms, fever, inability to tolerate food or liquid or any other concerns. Prescriptions: Amoxicillin [Amoxicillin 250 MG/5 Ml] 500 mg PO BID #200 ml Loratadine [Claritin] 10 mg PO QDAY #100 ml Referrals: PRIMARY CARE, [Primary Care Provider] - 3-5 Days KOKI ROSE MD [Staff Physician] - 3-5 Days (Dr. Rose is an ear nose and throat doctor (offensive coordinator). Please follow up with her for further evaluation) Time of Disposition: 23:14
--- NOTE | 2016-09-05 08:21 | XRay Report ---
CHEST 2 VIEWS INDICATION: Chest pain with cough. COMPARISON: 07/20/2014 FINDINGS: PA and lateral chest radiographs demonstrate better inspiration, smaller cardiomediastinal silhouette and clear lungs. No pleural effusions or CHF. Demineralized bones with mild mid thoracic kyphosis and few degenerative changes. CONCLUSION: No acute chest process, as described. Thank you for the opportunity to participate in this patient's care.
== END 2016-09-04 23:27 | disposition home or self-care (01) ==
LOC: ED 10:59
DX: J02.9 Acute pharyngitis, unspecified (principal); L29.9 Pruritus, unspecified; Z93.3 Colostomy status; Z88.6 Allergy status to analgesic agent; Z91.018 Allergy to other foods
CPT/HCPCS: 36415; 71020; 80048; 84484; 85025; 93005; 93010; 99284

== ENCOUNTER 2017-08-17 07:20 | Emergency (ER) | payer MEDICARE ==
[2017-08-17 07:38] VITALS: BP 114/75
[2017-08-17] MEDS ORDERED: TYLENOL PO ONE (08:14)
--- NOTE | 2017-08-17 08:19 | Emergency Department Report ---
ED Lower Extremity HPI - General Chief Complaint: Extremity Injury, Lower Stated Complaint: RIGHT FOOT PAIN Time Seen by Provider: 08/17/17 08:09 Source: patient Mode of arrival: Ambulatory Limitations: No Limitations, Other - History of Present Illness Initial Comments: This is a 66-year-old female nontoxic, well nourished in appearance, no acute signs of distress presents to the ED with c/o of right plantar foot boil x1 week. Patient stated that the boil has busted and white clear drainage came out. Patient denies any trauma to the area. Patient denies any numbness, tingling, fever, chills, nausea, vomiting, chest pain, short of breath. Patient denies any radiation of pain. Patient denies any joint swelling or joint redness. Patient states allergies to aspirin with past medical history of gastric ulcers. MD Complaint: foot injury -: week(s) (1) Injury: Foot: Right Severity scale (0 -10): 3 Improves With: immobilization Worsens With: palpation Associated Symptoms: ambulatory. denies: snap/pop sensation, swelling, numbness , tingling, unable to bear weight, able to partially bear weight - Related Data Previous Rx's Medication Instructions Recorded Last Taken Type HYDROcodone/APAP 5-325 [[place] 1 each PO Q4H PRN #15 tablet 04/19/16 Unknown Rx 5-325 mg TAB] Pantoprazole [Protonix TAB] 40 mg PO DAILY #14 tablet 04/19/16 Unknown Rx Amoxicillin [Amoxicillin 250 MG/5 500 mg PO BID #200 ml 09/04/16 Unknown Rx Ml] Loratadine [Claritin] 10 mg PO QDAY #100 ml 09/04/16 Unknown Rx Acetaminophen [Acetaminophen 8 650 mg PO Q8H PRN #30 tablet.er 08/17/17 Unknown Rx Hour] Clindamycin [Clindamycin CAP] 300 mg PO Q8H 7 Days cap 08/17/17 Unknown Rx Allergies Allergy/AdvReac Type Severity Reaction Status Date / Time aspirin Allergy Bleeding Verified 08/17/17 07:33 strawberry Allergy Itching Verified 08/17/17 07:33 ED Review of Systems ROS: Stated complaint: RIGHT FOOT PAIN Other details as noted in HPI Constitutional: denies: chills, fever Eyes: denies: eye pain, eye discharge, vision change ENT: denies: ear pain, throat pain Respiratory: denies: cough, shortness of breath, wheezing Cardiovascular: denies: chest pain, palpitations Endocrine: no symptoms reported Gastrointestinal: denies: abdominal pain, nausea, diarrhea Genitourinary: denies: urgency, dysuria, discharge Musculoskeletal: denies: back pain, joint swelling, arthralgia Skin: denies: rash, lesions Neurological: denies: headache, weakness, paresthesias Psychiatric: denies: anxiety, depression Hematological/Lymphatic: denies: easy bleeding, easy bruising ED Past Medical Hx - Past Medical History Hx Congestive Heart Failure: No Hx Diabetes: No Hx Asthma: No Hx COPD: No Additional medical history: States gastric ulcer on EGD several years ago. 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" - Social History Smoking Status: Never Smoker Substance Use Type: None - Medications Home Medications: Home Medications Medication Instructions Recorded Confirmed Last Taken Type HYDROcodone/APAP 5-325 [[place] 1 each PO Q4H PRN #15 tablet 04/19/16 Unknown Rx 5-325 mg TAB] Pantoprazole [Protonix TAB] 40 mg PO DAILY #14 tablet 04/19/16 Unknown Rx Amoxicillin [Amoxicillin 250 MG/5 500 mg PO BID #200 ml 09/04/16 Unknown Rx Ml] Loratadine [Claritin] 10 mg PO QDAY #100 ml 09/04/16 Unknown Rx Acetaminophen [Acetaminophen 8 650 mg PO Q8H PRN #30 tablet.er 08/17/17 Unknown Rx Hour] Clindamycin [Clindamycin CAP] 300 mg PO Q8H 7 Days cap 08/17/17 Unknown Rx ED Physical Exam - General Limitations: No Limitations, Other General appearance: alert, in no apparent distress - Head Head exam: Present: atraumatic, normocephalic - Eye Eye exam: Present: normal appearance Pupils: Present: normal accommodation - ENT ENT exam: Present: normal exam, mucous membranes moist - Neck Neck exam: Present: normal inspection, full ROM - Respiratory Respiratory exam: Present: normal lung sounds bilaterally. Absent: respiratory distress - Cardiovascular Cardiovascular Exam: Present: regular rate, normal rhythm. Absent: systolic murmur, diastolic murmur, rubs, gallop - GI/Abdominal GI/Abdominal exam: Present: soft, normal bowel sounds - Extremities Exam Extremities exam: Present: normal inspection, full ROM, tenderness, normal capillary refill. Absent: pedal edema, joint swelling, calf tenderness - Expanded Lower Extremity Exam Right Hip exam: Present: normal inspection, full ROM. Absent: tenderness, swelling Upper Leg exam: Present: normal inspection, full ROM. Absent: tenderness, swelling Knee exam: Present: normal inspection, full ROM. Absent: tenderness, swelling, abrasion Lower Leg exam: Present: normal inspection, full ROM. Absent: tenderness, swelling Ankle exam: Present: normal inspection, full ROM. Absent: tenderness, swelling Foot/Toe exam: Present: normal inspection, full ROM, tenderness. Absent: swelling, abrasion, laceration, ecchymosis, deformity, crepidus, dislocation, erythema, amputation, puncture wound, foreign body, calcaneal tenderness, tenderness at base of 5th metatarsal, nail avulsion, subungual hematoma Neuro vascular tendon exam: Present: no vascular compromise. Absent: pulse deficit, abnormal cap refill, motor deficit, sensory deficit, tendon deficit, extremity cold to touch, pallor, abnormal 2-point discrimination, decreased fine /light touch, foot drop, peroneal nerve deficit, significant pain with passive ROM of distal joint Gait: Positive: observed and limited by pain 1 - open wound with white clear drainage. No swelling noted. No surrounding cellulitis or erythema. - Back Exam Back exam: Present: normal inspection, full ROM - Neurological Exam Neurological exam: Present: alert, oriented X3, normal gait - Psychiatric Psychiatric exam: Present: normal affect, normal mood - Skin Skin exam: Present: warm, dry, intact, normal color. Absent: rash ED Course Vital Signs 08/17/17 07:34 Temperature 97.7 F Pulse Rate 51 L Respiratory 18 Rate Blood Pressure 114/75 O2 Sat by Pulse 99 Oximetry - Reevaluation(s) Reevaluation #1: 08/17/17 08:18 Patient is speaking in full sentences with no signs of distress noted. ED Lower Extremity MDM - Medical Decision Making This is a 66-year-old female that presents with a opened plantar foot wound with clear drainage. Patient is stable and was examined by me. There is no abscess or cellulitis. Patient is up-to-date with tetanus. Patient is discharged with clindamycin. Patient was referred to Follow-up with a primary care doctor in 3-5 days or if symptoms worsen and continue return to emergency room as soon as possible. At time of discharge, the patient does not seem toxic or ill in appearance. No acute signs of distress noted. Patient agrees to discharge treatment plan of care. No further questions noted by the patient. Critical care attestation.: If time is entered above; I have spent that time in minutes in the direct care of this critically ill patient, excluding procedure time. ED Disposition Clinical Impression: Unspecified open wound, right foot, initial encounter Disposition: TO HOME OR SELFCARE Is pt being admited?: No Does the pt Need Aspirin: No Condition: Stable Instructions: Clindamycin (By mouth), Acute Wound Care (ED) Additional Instructions: Follow-up with a primary care doctor in 3-5 days or if symptoms worsen and continue return to emergency room as soon as possible. Prescriptions: Acetaminophen [Acetaminophen 8 Hour] 650 mg PO Q8H PRN #30 tablet.er PRN Reason: Pain Clindamycin [Clindamycin CAP] 300 mg PO Q8H 7 Days cap Referrals: WILVER WINTER MD [Primary Care Provider] - 3-5 Days PRIMARY CAREMD [Referring] - 3-5 Days [facility] [place] [Outside] - 3-5 Days [facility] [Outside] - 3-5 Days
== END 2017-08-17 08:25 | disposition home or self-care (01) ==
LOC: ED 07:20
DX: S91.301A Unspecified open wound, right foot, initial encounter (principal); Z88.6 Allergy status to analgesic agent; Z91.018 Allergy to other foods; X58.XXXA Exposure to other specified factors, initial encounter; Y93.89 Activity, other specified; Y99.8 Other external cause status; Y92.89 Other specified places as the place of occurrence of the external cause
CPT/HCPCS: 99282